=== PATIENT | female | born 1940 | race Caucasian/White ===

== ENCOUNTER → 2017-05-11 | Outpatient (CLI) | payer OTHER | LOC: BHFA 13:15 | PROVIDERS: ATTEND Internal Medicine Cardiovascular Disease | DX: I34.0 Nonrheumatic mitral (valve) insufficiency (principal) | CPT/HCPCS: 78452; 93017; 93306; A9500; J2785 ==

== ENCOUNTER → 2017-05-24 | Outpatient (CLI) | payer OTHER ==
[~2017-05-24] MED LIST: IOPAMIDOL (ISOVUE 370) 100 ML BTL IV ONE
== END ==
LOC: FIMAGING 11:42
PROVIDERS: ATTEND Internal Medicine Cardiovascular Disease
DX: I28.8 Other diseases of pulmonary vessels (principal); J43.2 Centrilobular emphysema; R91.8 Other nonspecific abnormal finding of lung field
CPT/HCPCS: 71275; Q9967

== ENCOUNTER → 2017-06-23 | Outpatient (CLI) | payer OTHER, BC | LOC: FCP 10:12 | PROVIDERS: ATTEND Family Medicine | DX: R09.02 Hypoxemia (principal); J44.9 Chronic obstructive pulmonary disease, unspecified; I27.20 Pulmonary hypertension, unspecified; I28.1 Aneurysm of pulmonary artery; R91.1 Solitary pulmonary nodule ==

== ENCOUNTER 2017-06-30 12:48 | Inpatient (IN) | payer OTHER, BC ==
[2017-06-30] MEDS ORDERED: NS 1,000 ML IV ONE (12:58)
[2017-06-30] MEDS ORDERED: FAMOTIDINE 20 MG TAB PO ONE (12:58)
[2017-06-30] MEDS ORDERED: ASPIRIN EC 325 MG TAB PO ONE (12:58)
[2017-06-30] MEDS ORDERED: diphenhydrAMINE 25 MG CAP PO ONE (12:58)
[2017-06-30] MEDS ORDERED: DIAZEPAM 5 MG TAB PO ONE (12:58)
--- NOTE | 2017-06-30 13:11 | PDHPUP ---
History & Physical Update H&P update statement: This history and physical update is based on an assessment of the patient which was completed after admission or registration (within 24 hours), but prior to the surgery/procedure. H&P update: H&P reviewed & patient examined, no change in patient's condition since H&P completed
--- NOTE | 2017-06-30 13:33 | CPEKG ---
Heart Rate: 79 RR Interval: 759 P-R Interval: 160 QRSD Interval: 122 QT Interval: 404 QTC Interval: 464 P Ruby: 5 QRS Ruby: 192 T Wave Ruby: 92 EKG Severity - ABNORMAL ECG - EKG Impression: SINUS RHYTHM EKG Impression: NONSPECIFIC INTRAVENTRICULAR CONDUCTION DELAY EKG Impression: ABNRM R PROG, CONSIDER ASMI OR LEAD PLACEMENT Electronically Signed By: Manasa Raza 30-Jun-2017 13:35:46
[2017-06-30 13:49] LABS: PLATELET COUNT 225 10^3/uL (150-400)
[2017-06-30 14:10] LABS: INR 0.99 (0.83-1.16); PROTIME(PATIENT) 13.3 SEC (12.0-15.0)
--- NOTE | 2017-06-30 14:45 | PDANEPAE ---
ANE History of Present Illness L and R heart cath pre open heart surgery ANE Past Medical History - Pulmonary History Hx Sleep Apnea: No Pulmonary History Comment: severe puim artery dilation. moderate bullous COPD. O2 dependant ANE Review of Systems Review of Systems: - Exercise capacity METS (RN): 3 METS ANE Patient History - Allergies Allergies/Adverse Reactions: levofloxacin [From Levaquin] Allergy (Intermediate, Verified 06/27/17 19:44) Unknown albuterol Allergy (Mild, Verified 06/27/17 19:44) lisinopril Allergy (Mild, Verified 06/27/17 19:44) Unknown atorvastatin [From Lipitor] Allergy (Verified 06/30/17 14:28) cefuroxime Allergy (Verified 06/27/17 19:48) Unknown hydrochlorothiazide Allergy (Verified 06/30/17 14:28) Penicillins Allergy (Verified 06/27/17 19:48) Unknown rosuvastatin [From Crestor] Allergy (Verified 06/30/17 14:28) - Home Medications Home medications: home medication list seen and reviewed Home Medications: Aspirin EC [Aspirin EC 81 mg (*)] 81 mg PO MOWEFR@06/27/17 [Last Taken Unknown] Levothyroxine [Synthroid 50 mcg (*)] 50 mcg PO DAILY 06/27/17 [Last Taken Unknown] Losartan Potassium [Cozaar 25 mg (*)] 25 mg PO HS 06/27/17 [Last Taken Unknown] Rosuvastatin Calcium [Crestor 5mg] 2.5 mg PO MOWEFR@06/27/17 [Last Taken Unknown] Spironolactone [Aldactone 25 MG (*)] 25 mg PO HS 06/27/17 [Last Taken Unknown] predniSONE 5 mg PO DAILY 06/27/17 [Last Taken Unknown] - NPO status NPO Status: no food or drink >8 hours (except pills with sips) - Anes Hx Anes Hx: no prior problems - Smoking Hx Smoking Status: Never smoked - Alcohol Use Alcohol Use: None ANE Labs/Vital Signs - Labs Result Diagrams: 06/30/17 13:40 06/30/17 13:40 - Vital Signs Height: 160 cm Weight: 70.3 kg ANE Physical Exam - Airway Mallampati Score: Class 2 Mouth exam: normal dental/mouth exam - Pulmonary Pulmonary: expiratory wheeze, inspiratory crackles - Cardiovascular Cardiovascular: regular rate and rhythym - ASA Status ASA Status: III ANE Anesthesia Plan Anesthesia Plan: GA w LMA (vs ETT. Prefer to avoid positive pressure ventilation if possible)
[2017-06-30] MEDS ORDERED: fentaNYL 100 MCG/2 ML INJ ONE (16:24)
[2017-06-30] MEDS ORDERED: LIDOCAINE 1% 300 MG/30 ML SDV ONE (16:24)
[2017-06-30] MEDS ORDERED: HEPARIN 10,000 UNIT/10 ML MDV (1,000 UNIT/ML) ONE (16:25)
[2017-06-30] MEDS ORDERED: IOPAMIDOL (ISOVUE-370) 150 ML BTL IV ONE ×3 (16:25→17:42)
[2017-06-30] MEDS ORDERED: VERAPAMIL 5 MG/2 ML VIAL ONE (16:25)
[2017-06-30] MEDS ORDERED: MIDAZOLAM 2 MG/2 ML VIAL ONE (16:25)
[2017-06-30] MEDS ORDERED: PROPOFOL/EMULSION 500 MG/50 ML BOTTLE IV ONE ×2 (16:26→18:05)
[2017-06-30] MEDS ORDERED: LIDOCAINE 2% JELLY 5 ML TUBE ONE (16:30)
[2017-06-30] MEDS ORDERED: LIDOCAINE 2% 100 MG/5 ML SYR ONE (16:30)
[2017-06-30] MEDS ORDERED: PHENYLEPHRINE HCL 100 MCG/ML SYR ONE (16:38)
[2017-06-30] MEDS ORDERED: PHENYLEPHRINE 10 MG/ML SDV ONE (17:05)
[2017-06-30] MEDS ORDERED: PROPOFOL 200 MG/20 ML VIAL ONE ×2 (17:12→17:39)
[2017-06-30] MEDS ORDERED: NITROGLYCERIN 1,500 MCG/15 ML VIAL MISC ONE (17:26)
[2017-06-30] MEDS ORDERED: PHENYLEPHRINE HCL 100 MCG/ML SYR IVP PRN (18:42)
[2017-06-30] MEDS ORDERED: MEPERIDINE 25 MG/ML SYR IVP PRN (18:42)
[2017-06-30] MEDS ORDERED: ONDANSETRON 4 MG/2 ML VIAL IVP PRN (18:42)
[2017-06-30] MEDS ORDERED: NALOXONE HCL 0.4 MG/ML INJ IVP PRN (18:42)
[2017-06-30] MEDS ORDERED: HYDROCODONE/APAP 5/325 TAB PO PRN (18:42)
[2017-06-30] MEDS ORDERED: DEXAMETHASONE 4 MG/ML VIAL IVP PRN (18:42)
[2017-06-30] MEDS ORDERED: LR 500 ML IV PRN (18:42)
[2017-06-30] MEDS ORDERED: fentaNYL 100 MCG/2 ML INJ IVP PRN (18:42)
[2017-06-30] MEDS ORDERED: ATROPINE SULFATE 1 MG/10 ML SYR IVP PRN (18:43)
[2017-06-30] MEDS ORDERED: NITROGLYCERIN 0.4 MG BTL SL PRN (18:43)
--- NOTE | 2017-06-30 19:06 | POSTOPPROG ---
Post Op Note Date of Operation: 06/30/17 Surgeon: Manasa Raza Anesthesia: IV Sedation, LMA, Other (Specify) (Sedation provided by Dr. Reed Ramirez) Pre-op Diagnosis: giant PA aneurysm Post-op Diagnosis: giant PA aneurysm; critical PHTN Indication: pre CT surgery Procedure: 1. RHC 2. LHC 3. Cor angio Findings: see dictated report. No sig CAD. Likely LM compression from PA aneurysm Inf/Abcess present in the surg proc area at time of surgery?: No EBL: Minimal Total fluids administered: 500 cc Complications: none Drains: Other (none) Specimen(s): none
[2017-06-30] MEDS ORDERED: LOSARTAN POTASSIUM 25 MG TAB PO SCH (21:00)
--- NOTE | 2017-06-30 21:17 | CPIP ---
[f rep st] INVASIVE CARDIAC PROCEDURE DATE OF PROCEDURE: 06/30/2017 PROCEDURE: 1. Right heart catheterization. 2. Left heart catheterization. 3. Coronary angiography. COMPLICATIONS: None. INDICATION FOR PROCEDURE: Preoperative evaluation prior to pulmonary artery aneurysmectomy and possible PVR and tricuspid repair. DESCRIPTION OF PROCEDURE: Informed consent was obtained and n.p.o. status was confirmed. Time-out performed. The patient was brought to the catheterization laboratory and prepped and draped in sterile fashion. Sedation was provided by Dr. Reed Ramirez. Using ultrasound guidance, a 5-Cambodian introducer sheath was placed in the right internal jugular vein. Modified Seldinger technique was used. Five-Cambodian [place]-Cody catheter was used for right heart pressures. After this was completed, a 6-Cambodian sheath was placed in the right common femoral artery using modified Seldinger technique. For left coronary system imaging, multiple diagnostic and guiding catheters were used. I did call Dr. Les Zuh in for assistance, as we were having difficulty completely engaging the left main coronary artery. The right coronary artery was imaged with a Pranav catheter. We used a JR4 catheter for left ventricular pressure. FINDINGS: 1. Right heart catheterization: RA pressure mean is 18. RV pressure 91/14 with an end-diastolic pressure of 27. PA pressure 95/33 with a mean of 58 mmHg. 2. Saturations: SVC sat 80% with the patient on approximately 30% FiO2 with LMA. PA saturation 68%. RV saturation 65%. RA 61%. Arterial saturation 94%. 3. Calculated Crotes cardiac output is 4.4 L/minute with a cardiac index of 2.54 L/minute per sq meter. 4. Left heart catheterization: Left main: The appearance was that of a highly compressed slit-like vessel. Initially, we were concerned about dissection versus spasm of this vessel. 100 mcg of intracoronary nitroglycerin was given. The patient did not have a significant change in her hemodynamics. There was no change in her ST segments. At this point, I called my partner, Dr. Les Zhu, for assistance. We tried multiple diagnostic as well as guiding catheters and were able to get a few pictures of the left system. In EVANS views , the left main appears normal; however, each time we imaged the left main from an YAKUT position, the vessel appeared slit-like and possibly externally compressed. There is no significant atherosclerotic disease in the left circumflex with 2 large obtuse marginals or in the LAD with 2 diagonal vessels. 5. The right coronary artery is normal and dominant without significant atherosclerotic coronary disease. 6. Left heart catheterization pressures: Aortic pressure 69/50 with a mean of 57, LV pressure 68/11, with end-diastolic pressure of 15. CONCLUSIONS: 1. Critical and intermittently greater than systemic pulmonary arterial hypertension. 2. No clear atherosclerotic coronary disease. The left main is abnormal and likely this is related to external compression from the patient's giant pulmonary artery aneurysm. 3. Diminished cardiac output. Left ventricular ejection fraction known to be normal, so this is likely related to her right heart pathology and pulmonary hypertension. 4. The patient will be admitted to telemetry. She will have a manual sheath pull. We will follow her renal function carefully. If renal function is stable , we will perform CT coronary angiogram tomorrow to further assess the relationship between her left main coronary artery and pulmonary artery aneurysm for surgical planning purposes. I discussed these results in detail with the patient and the patient's son and explained that she remains a very high surgical risk, given her profound pulmonary hypertension. They verbalize understanding. /[id number]/MODL MTDD
[2017-06-30] MEDS: predniSONE 5 MG TAB PO SCH ×2 (21:41→21:42)
[2017-06-30] MEDS: SPIRONOLACTONE 25 MG TAB PO SCH (23:26)
--- NOTE | 2017-06-30 23:57 | GCON ---
[f rep st] CONSULTATION DATE OF CONSULTATION: 06/30/2017 HISTORY OF PRESENT ILLNESS: The patient is a pleasant 77-year-old female with a history of severe pu lmonary hypertension who underwent right and left heart catheterization for preoperative workup for t horacic surgery as she has an 8.5 - 9 cm main pulmonary artery. She underwent a prolonged catheteriz ation with multiple catheter exchanges and some hypotension requiring doses of phenylephrine. She al so received propofol with an LMA. Dr. Raza, the online services manager, performed the catheterization, called a stroke alert because the patient had delayed speech. At that time, she was felt to have symmetric strength. When I speak with the patient, she is able to name objects and carry on normal conversation. She is complaining of some numbness around her mouth bilaterally. She denies fever, chills, cough, sputum, nausea, vomiting, diarrhea, and she is not confused. REVIEW OF SYSTEMS: Complete 10-point review of systems conducted is negative except as noted in the History of Present Illness. PAST MEDICAL HISTORY: 1. Severe pulmonary hypertension with dilated main pulmonary artery. 2. Right ventricular dilation with 2 with preserved right ventricular function. 3. Emphysematous lung disease with no history of smoking. 4. Diastolic heart failure. 5. Dyslipidemia. 6. HSV-1 infection. 7. Hypersensitivity pneumonitis. 8. Hypothyroidism. 9. Hypoxemia. 10. Left bundle branch block. 11. Macular degeneration. 12. Mitral regurgitation. 13. Pneumothorax. 14. Pulmonary nodule. PAST SURGICAL HISTORY: She has history of bronchoscopy and cataracts. MEDICATION: Outpatient medications are: Advair, aspirin, Crestor, levothyroxine, losartan, predniso ne 5, Spiriva and spironolactone. ALLERGIES: She is allergic to albuterol, cefuroxime, Crestor, Levaquin, Lipitor, lisinopril, hydroch lorothiazide, penicillin, . SOCIAL HISTORY: She does not smoke cigarettes or use alcohol. She lives in [facility]. PHYSICAL EXAMINATION: VITAL SIGNS: Heart rate was in the 70s. Blood pressure is 91/53. She is adolfo athing 18 times a minute. She was 91% on 4 L. GENERAL: No acute distress. HEENT: Sclerae anicter ic. Oropharynx clear. Mucous membranes are moist. NECK: Supple with lymphadenopathy or JVD. LUNG S: Clear to auscultation bilaterally. HEART: S1 with a split S2. ABDOMEN: Soft, nontender, nondi stended. EXTREMITIES: Lower extremities without edema. Calves nontender. NEUROLOGIC: Exam reveal s a subtle left-sided facial droop that was verified with the patient. She has batsheva normal numbness that is bilateral. Her speech is fluent. Able to name objects. She has an intact sensation on her face bilaterally, on her arms and legs bilaterally, and upper extremity and lower extremity strength is 5/5 bilaterally. I have discussed the case with Dr. Manasa Raza. LABORATORY: Sodium 141, potassium 4.6, chloride 100, bicarb 28, BUN 26, creatinine 1.2 with unknown baseline. LDL is elevated at 131. INR is normal. White count 10.7, hematocrit 43, platelets are 22 5,000. EKG interpreted by me shows sinus at 79 with right axis deviation and delayed R-wave progression. No ST or T-wave changes. This is consistent with right ventricular hypertrophy. ASSESSMENT/PLAN: A 77-year-old female with post catheterization speech and facial droop. 1. Question cerebrovascular accident. Certainly, the patient had a prolonged catheterization with h ypotension and multiple catheter exchanges. This is a high risk scenario for embolic cerebrovascular accident versus a watershed cerebrovascular accident with her hypotension. Her NIH stroke scale is relatively low as her speech is fluent by my exam. Dr. Raza, who knows her well as an outpatient, sa ys it is a bit slower but that could be just encephalopathy. Her facial droop is there and undeniabl e but in and of itself represents a relatively low NIH stroke scale. The patient does have some rela tive contraindications with thrombolytics being her multiple catheter exchanges and recent angiogram today. The patient is undergoing a noncontrast CAT scan at this moment with consultation with [facility]. I would be hesitant to provide lytics with this patient given her aforementioned proce dure and low NIH stroke scale. Await the findings of the CAT scan. I think MRI brain in the morning is indicated for further clarification. 2. Pulmonary hypertension. She is undergoing workup for possible surgical management of her pulmona ry artery aneurysm. 3. Pulmonary hypertension. Management per Dr. Raza. 4. Hypotension. This appears to have resolved. Thank you for this consultation. [facility] will follow. /[id number]/MODL
[2017-07-01] MEDS ORDERED: LORazepam 2 MG/ML INJ IVP ONE (07:15)
--- NOTE | 2017-07-01 08:33 | POSTANESTH ---
Post Anesthetic Evaluation Cardiovascular Status: Normal, Stable Respiratory Status: Normal, Stable, Similar to Pre-op Cond. (needs constant o2) Level of Consciousness/Mental Status: Can Participate in Eval Pain Control: Adequate, Prn Tx Ordered Nausea/Vomiting Control: Adequate, Prn Tx Ordered Complications Possibly Related to Anesthesia: None Noted
--- NOTE | 2017-07-01 09:32 | PDCARPN ---
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 She was admitted after her diagnostic right and left heart catheterization on June 30. Her course was complicated by TIA manifest by left facial droop and mild dysarthria. A stroke alert was called from the [facility] and she had negative head CT. She did have a neurological evaluation acutely, through the telemedicine portal. No lytics were required. Within an hour she had resolution of her facial droop and return to normal fluent speech. No other neurological deficits. 1. Giant pulmonary artery aneurysm: This is at high risk of rupture. Etiology is not yet clear. Evaluation for vasculitis such as Bechet's disease is underway. She does have severe pulmonary hypertension which does contribute to aneurysmal formation in the pulmonary artery. It also appears that the main pulmonary artery is compressing her left main coronary artery, which is certainly an unfavorable anatomic issue. We will discuss again with Dr. Les Waite after she has her CT coronary angiogram. He has tentatively planned to operate, replacing the pulmonic valve, repairing her tricuspid valve, and replacing her main pulmonary artery. For now she will stay in the hospital until a final decision about surgery has been made, given her high risk of rupture and her anatomical left main disease. 2. Critical pulmonary hypertension: Mean PA pressure 58. RV pressure is also in the 90s, indicating that her RV function is fairly robust. Etiology is likely related to the emphysematous disease in her lungs, being evaluated by Dr. Pillo Kumar. While here in the hospital she will have additional laboratory evaluation including vasculitis workup and alpha 1 antitrypsin. She will also have a V/Q scan. As per Dr. Kumar, if she does undergo cardiac surgery, it would be helpful to have inhaled nitric oxide available for right ventricular afterload reduction in the perioperative period. 3. Hypoxia and emphysematous lung disease: Atypical presentation as she is a never smoker. Ongoing workup as detailed above. Continue supplemental oxygen therapy. She does take chronic low-dose prednisone which will be continued. 4. Left main disease: This appears to be extrinsic compression from the pulmonary artery. CT coronary angiogram today to further evaluate anatomical relationships. She may require single-vessel bypass at the time of her PA aneurysm repair. 5. TIA yesterday evening status post catheterization: She is neurologically back to baseline. Head CT without acute findings. No need for brain MRI at this time. Continue aspirin and statin. 6. Valvular heart disease: Severe pulmonic regurgitation related to aneurysmal dilation of the main pulmonary artery. She also has moderate tricuspid regurgitation. Mild aortic and mitral regurgitation. Likely will require pulmonic valve replacement and tricuspid valve annuloplasty. 45 minutes was spent in direct patient care, discussion with Dr. Kumar and nursing, review of chart. 07/01/17 09:32 Subjective: She reports her dyspnea is at baseline. No angina. Her perioral numbness that was present shortly after her angiogram last night has resolved. She denies any other focal neurologic deficits. Reviewed/Discussed With: other (Dr. Pillo Kumar) Time Spent With Patient: 25 minutes Objective: Vital Signs (8 Hrs) Temp Pulse Resp BP Pulse Ox 07/01/17 08:00 76 21 H 97/67 L 96 07/01/17 05:31 83 23 H 97/58 L 95 07/01/17 02:31 36.6 C 90 21 H 100/72 91 L Intake/Output (24 Hrs) 06/30/17 07/01/17 07/02/17 05:59 05:59 05:59 Intake Total 2300 Output Total 1100 Balance 1200 Intake: Oral (ml) 1600 IV Intake (ml) 700 Output: Urine (ml) 1100 Bedpan 250 Bedside Commode 850 Other: Weight 70.3 kg Number of Voids Bedpan 1 No acute distress. Sitting up in bed. JVP less than 10. Regular rate and rhythm with soft early systolic murmur at the left lower sternal border. Lungs clear to auscultation without wheezes rhonchi or rales Right femoral arteriotomy site is clean dry and intact with out hematoma, or bruit Extremities are warm and well perfused without cyanosis clubbing or edema neuro alert and oriented x3 without gross focal neurologic deficits. Her facial droop has resolved. Appropriate mood and affect. Result Diagrams: 07/01/17 05:25 07/01/17 05:25 Telemetry: NSR with occ PVCs ICD10 Worksheet Patient Problems: Problems Problem Status Onset COPD (chronic obstructive pulmonary disease) Acute Hypoxia Acute Left main coronary artery disease Acute Pulmonary HTN Acute Pulmonary artery aneurysm Acute - ICD10 Problem Qualifiers (1) Pulmonary artery aneurysm (2) Pulmonary HTN (3) COPD (chronic obstructive pulmonary disease) (4) Hypoxia (5) Left main coronary artery disease
[2017-07-01] MEDS ORDERED: METOPROLOL TARTRATE 25 MG TAB PO ONE (10:45)
[2017-07-01] MEDS: predniSONE 5 MG TAB PO SCH (10:54)
[2017-07-01] MEDS: LEVOTHYROXINE 50 MCG TAB PO SCH (10:54)
[2017-07-01] MEDS: ENOXAPARIN 40 MG/0.4 ML SYR SC SCH (10:56)
[2017-07-01] MEDS ORDERED: IOPAMIDOL (ISOVUE 370) 100 ML BTL IV ONE (12:04)
[2017-07-01] MEDS ORDERED: METOPROLOL TARTRATE 5 MG/5 ML INJ ONE ×2 (12:10→12:38)
[2017-07-01] MEDS ORDERED: IPRATROPIUM/ALBUTEROL 3 ML DEYVIAL IH PRN (13:06)
--- NOTE | 2017-07-01 14:25 | GCON ---
[f rep st] CONSULTATION NEUROLOGY CONSULTATION REFERRING PHYSICIAN: Manasa Raza MD CHIEF COMPLAINT: Followup after stroke alert. HISTORY OF PRESENT ILLNESS: The patient is a very pleasant 77-year-old lady with a history of severe pulmonary artery hypertension who underwent right and left heart catheterization for preoperative workup for thoracic surgery yesterday. The patient states after coming as the anesthesia was wearing off, she noticed bilateral perioral numbness. She then states when she was tested there may have been some facial droop on the left, but she did not feel any weakness in her face. She did not have any weakness in her limbs. Dr. Hare saw her acutely and noted her blood pressure to be 91/53. He also noted that she was able to name objects and carry on a normal conversation with him at the time of examination, but only complained of numbness around her mouth bilaterally. These symptoms lasted around 15 to 20 minutes and spontaneously resolved. Telemedicine was consulted, and they did not recommend tPA. She had a head CT done acutely with a stroke alert. It showed no acute abnormalities. There were some age-related changes. In addition, as she still had circulating contrast, there was some visualization of the cerebral vasculature. Specifically, there were no obvious abnormalities in the major proximal vessels , including the bilateral M1, A1, posterior cerebral, and intracranial, vertebral, and basilar arteries. There was some artifact as well. The patient has done well overnight without any recurrent symptoms. In the patient's opinion, this was a side effect from anesthesia. For past medical history, social history, home medications, and allergies, please see Dr. Hare's consultation note. PHYSICAL EXAMINATION: VITAL SIGNS: Blood pressure is 100/72, temperature 36.6 , respirations 17. GENERAL: No acute distress. Very pleasant. NEUROLOGIC: Higher mental function. She is awake and alert. She names 5/5, follows commands 5/5 and repeats 5/5. No aphasia. Cranial nerve exam is normal 2 through 7 and 12. No facial weakness presently. No dysarthria. No sensory deficits in her face. Motor exam is normal strength and tone throughout. Sensory exam normal to light touch. IMPRESSION AND PLAN: 1. Transient neurologic symptoms, resolved. The patient's clinical history is not entirely clear. She certainly may have had a TIA versus nonspecific transient neurologic symptoms related to anesthetic medications. The perioral numbness would be more consistent with a medication side effect versus a focal neurovascular syndrome. In any case, I agree with management, including statin and aspirin therapy going forward. I also recommend a carotid ultrasound preoperatively. The patient's neurologic exam is normal. MRI brain is not necessary at this point. I understand the severity of her cardiopulmonary disorder and there is no specific contraindication, based on this event, to proceed with surgery as planned. No further recommendations now. We will continue to follow this patient as needed. Please do not hesitate to call with any questions or changes in neurologic status with this very pleasant lady. Fifty total minutes floor time; this included review of her complex past medical history, recent neuro imaging, direct counseling with the patient and coordination of care. /[id number]/MODL MTDD
[2017-07-01] MEDS ORDERED: LORazepam 2 MG/ML INJ ONE (14:50)
--- NOTE | 2017-07-01 15:16 | HOSPPROG ---
Hospitalist Progress Note Assessment/Plan: Assessment/plan: This is a 77 year old female new to my care today underwent cardiac catheterization on 06/30/[address] Raza and had: # postprocedure facial numbness thought to be most likely due to anesthesia versus TIA # critical pulmonary hypertension with giant pulmonary artery aneurysm at high risk for rupture as well as critical pulmonary hypertension -await CT angio -continue care per Cardiology and CT surgery. Awaits pulmonic valve replacements and tricuspid valve and pulmonary artery repair # hypotension (resolved) # mild hyperkalemia -monitor Subjective: Patient feels well today. She denies any numbness or weakness. Her speech is normal. She reports resolution of numbness of her lips. Objective: Vital Signs Temp Pulse Resp BP Pulse Ox 36.9 C 75 20 98/64 L 95 07/01/17 11:47 07/01/17 11:47 07/01/17 11:47 07/01/17 11:47 07/01/17 11:47 Laboratory Results 07/01/17 05:25 07/01/17 05:25 06/30/17 07/01/17 07/02/17 05:59 05:59 05:59 Intake Total 2300 Output Total 1100 Balance 1200 PT 13.3 SEC (12.0-15.0) 06/30/17 13:40 INR 0.99 (0.83-1.16) 06/30/17 13:40 - Physical Exam Constitutional: no apparent distress, appears nourished, not in pain Ears, Nose, Mouth, Throat: moist mucous membranes, hearing normal, ears appear normal, no oral mucosal ulcers Cardiovascular: regular rate and rhythym, no murmur, rub, or gallop Respiratory: no respiratory distress, no rales or rhonchi, clear to auscultation Gastrointestinal: normoactive bowel sounds, soft, non-tender abdomen, no palpable masses Neurologic: AAOx3, sensation intact bilaterally, CN II-XII Intact, No facial droop ICD10 Worksheet Patient Problems: Problems Problem Status Onset Pulmonary artery aneurysm Acute Pulmonary HTN Acute COPD (chronic obstructive pulmonary disease) Acute Hypoxia Acute Left main coronary artery disease Acute
--- NOTE | 2017-07-01 15:29 | ASMTCASEMG ---
Living Arrangements What is your living Answers: Alone arrangement? Who do you live with? Type Of Residence What kind of residence do Answers: House you live in? Discharge Plan Comments Coordination Status Comments Notes: Patient is a 77yo single female who was admitted for hypoxia and pulmonary HTN. No therapies have been ordered yet. D/C plan TBD. CM will follow. Date Signed: 07/01/2017 03:28 PM Electronically Signed By:Chen Ca LCSW
--- NOTE | 2017-07-01 16:26 | GCON ---
[f rep st] CONSULTATION PULMONARY CONSULT DATE OF CONSULTATION: 07/01/2017 HISTORY OF PRESENT ILLNESS: This patient is a 77-year-old female, well known to me from a recent jose carlos luation as an outpatient for pulmonary hypertension. She has a complex history involving COPD, thoug h she has no smoking history, and hypoxemia. She has had significant pulmonary hypertension on echoc ardiogram since at least March 2015, when her PA pressure was measured at 74. She has also had mod erate right atrial and right ventricular enlargement as well as severe dilatation of the pulmonary ar randall. She recently changed hospital systems and started in [facility], and the pulmonary artery was discovered. She was admitted now for right and left heart catheter ization, which was performed yesterday. On the right heart catheterization, she was found to have a mean pulmonary artery pressure of 58 with a Cortes cardiac output of 4.4, index of 2.5, and an LVEDP of 15, resulting in a calculated PVR of 17. She was also found to have what appeared to be a compresse d mid left anterior descending artery without obvious intraluminal stenosis. In any case, she tolera ailsa that procedure quite well and is relatively stable at this time. Further workup for her pulmonar y hypertension and possible surgical intervention is currently underway. REVIEW OF SYSTEMS: Significant for hypoxemia and dyspnea, walking as little as 5 feet. She has had no chest pain or previous thromboembolic disease. She has been on chronic prednisone for several yea rs, but the details of that are uncertain. PAST MEDICAL HISTORY: Includes: 1. Actinic keratoses. 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 3. Remote cellulitis. 4. COPD, as described above. 5. Diabetes. 6. Diastolic heart failure. 7. Dyslipidemia. 8. HSV infection. 9. Hypertension. 10. Hypothyroidism. 11. Hypoxemia. 12. Left bundle branch block. 13. Macular degeneration. 14. Mild mitral regurgitation. 15. Remote pneumothorax with a bronchoscopy in the . 16. Pulmonary hypertension as described above. 17. A right lower lobe granuloma noted in October 2013, but a new left upper lobe ground-glass nodule se en May 2017. 18. Seasonal allergies. 19. Vitamin D deficiency. PAST SURGICAL HISTORY: None other than bronchoscopy. ALLERGIES: Include: 1. Albuterol, which causes cough. 2. Cefuroxime. 3. Crestor. 4. Levaquin. 5. Lipitor. 6. Lisinopril/hydrochlorothiazide. 7. Penicillin. FAMILY HISTORY: Significant for coronary artery disease. SOCIAL HISTORY: She is a lifelong nonsmoker, but did live with a wood stove in [place] for many years. Currently, lives in [place]. No significant alcohol or IV drug use. CURRENT MEDICATIONS: Include aspirin, Lovenox, Synthroid, prednisone 5 mg daily, Crestor and Aldacto ne. PHYSICAL EXAM: VITAL SIGNS: Blood pressure was 98/64 with a heart rate of 75, in normal sinus rhyth m. Respirations of 20, oxygen saturation 95% on 4 L. GENERAL: She was moderately obese, in no appa rent distress. Sitting up at the bedside, speaking full sentences without using accessory muscles fo r breathing. She was alert and oriented x3, and asks a lot of appropriate questions. HEENT: Pupils equally round and reactive to light. Nonicteric and noninjected. Mucous membranes were moist witho ut erythema or exudate. NECK: Supple with probable jugular vein distention. RESPIRATORY: Breath s ounds distant but clear to auscultation bilaterally without wheezes, rubs or rales. HEART: Regular rate and rhythm. ABDOMEN: Soft, nontender, nondistended without hepatosplenomegaly. Groin areas wi thout hematoma. EXTREMITIES: No clubbing, cyanosis, or edema. NEUROLOGIC: Nonfocal, including aircraft lay out worker nial nerves, deep tendon reflexes. SKIN: Warm and dry without evidence of rash. OBJECTIVE DATA: Includes a right heart catheterization, as described above. She also had a blood ga s on June 23 with 2 L/minute of oxygen with a pH of 7.41, pCO2 45, PO2 68, bicarb 30, saturation o f 93%. She had recent pulmonary function test that showed obstructive disease with an FEV1 of 58% of predicted, and a low diffusion capacity. ASSESSMENT AND PLAN: 1. A very large pulmonary artery aneurysm. She has been seen by Dr. Waite as an outpatient and is l ikely to have this surgically corrected along with her severe pulmonic insufficiency. A tricuspid an nuloplasty is also fairly likely. Her risk for surgery is not trivial, particularly given her severe ly elevated mean pulmonary artery pressure. The etiology here is presumably from her pulmonary hyper tension which is likely to be related to her underlying chronic obstructive pulmonary disease as well as hypoxemia. There may be other disorders involved here as well such as Behcet, though she has jennifer y little to support this diagnosis at this time. While the degree of pulmonary hypertension appears to be out of proportion to chronic obstructive pulmonary disease and hypoxemia alone, I think that re pair of the aneurysm is indicated despite those risks. We will discuss this further with Dr. Waite, once he is available. 2. Pulmonary hypertension. As described above, I think this is most likely group 3 disease from chr onic obstructive pulmonary disease and hypoxemia. I suspect there is an element of sleep apnea as we ll; though she said she had a sleep study in the past, I have not been able to locate this. At some point, she will need a sleep study in a sleep lab, so we can adequately rule out central sleep apnea. In the short term, we will look for chronic thromboembolic disease with a ventilation perfusion sca n as well as connective tissue disease with serum rheumatoid factor, BRODY and ANCA studies. 3. New left upper lobe lesion, seen on CT scan in May. She is going to be getting another CT c oronary angiogram in the near future. We can re-evaluate this at this time. This study is to better evaluate her left anterior descending artery for surgical planning purposes. 4. Chronic obstructive pulmonary disease. I assume this is related to her wood smoke exposure in past. An alpha-1 antitrypsin has been sent. She was quite concerned about using metered dose inha lers, which cause cough, but we will use nebulizers, which she has tolerated well in the past. Since she has been on prednisone for a long time, I am hesitant to discontinue this abruptly, but I would certainly favor a prolonged taper. The benefit of an inhaled corticosteroid at this time may be deba table, but, we will eventually have to work in that direction. /[id number]/MODL
[2017-07-01] MEDS ORDERED: LORazepam 2 MG/ML INJ IV ONE (18:15)
[2017-07-01] MEDS ORDERED: ASPIRIN EC 81 MG TAB PO SCH (21:00)
[2017-07-01] MEDS: ROSUVASTATIN CALCIUM 10 MG TAB PO SCH (21:04)
[2017-07-01] MEDS: SPIRONOLACTONE 25 MG TAB PO SCH (21:07)
[2017-07-02] MEDS: predniSONE 5 MG TAB PO SCH (08:44)
[2017-07-02] MEDS: LEVOTHYROXINE 50 MCG TAB PO SCH (08:44)
--- NOTE | 2017-07-02 09:14 | HOSPPROG ---
Hospitalist Progress Note Assessment/Plan: 77-year-old female seen because of acute stroke alert and thought possibly have a TIA verses medication side effect. Patient found to have severe pulmonary hypertension with a dilated pulmonary artery. There is also known COPD, chronic respiratory failure and acute on chronic kidney injury with potassium today at 5.3. Patient is new to me today Plan: Thoracic surgical consultation, intensive care medicine consultation. Patient is tentatively scheduled for surgical repair of her pulmonary artery aneurysm in the neck is 3-4 days. This has been discussed with the patient and discussed with Dr. Pillo Kumar and nursing. CT scans have been reviewed by myself. -TIA versus medication side effect: This symptom has resolved. It was a medication side effect as she has no neurologic deficit at this time. -pulmonary aneurysm with pulmonary hypertension. Plan to schedule surgical repair in the next 3-4 days of possible -COPD class 3 with hypoxemia requiring supplemental oxygen. This is currently at her baseline and doing well. -question connective tissue disorder with a negative rheumatoid factor. -acute versus chronic kidney injury with a creatinine of 1.1 will continue to follow. Plan: Per above. Will continue to follow along with you. Time: 55 min. Case was discussed with intensive care medicine and with nursing following a phone conversation with cardiothoracic surgery. All questions were answered of the patient and all questions were answered of her son Jabier who was present by phone. Subjective: Reports she is feeling well. Patient had many questions about the surgery. Objective: Vital Signs Temp Pulse Resp BP Pulse Ox 36.7 C 76 16 111/69 97 07/02/17 08:13 07/02/17 08:13 07/02/17 08:13 07/02/17 08:13 07/02/17 08:13 Laboratory Results 07/01/17 05:25 07/01/17 05:25 07/01/17 07/02/17 07/03/17 05:59 05:59 05:59 Intake Total 2300 1500 Output Total 1100 Balance 1200 1500 PT 13.3 SEC (12.0-15.0) 06/30/17 13:40 INR 0.99 (0.83-1.16) 06/30/17 13:40 - Time Spent With Patient Time Spent with Patient: greater than 35 minutes Time Spent with Patient: Greater than 35 minutes spent on this patients care, greater than 50% of time spent counseling, educating, and coordinating care regarding the above mentioned plan. - Pending Discharge Pending Discharge Within 24 Hours: No Pending Discharge Within 48 Hours: No - Physical Exam Constitutional: no apparent distress Eyes: PERRL, anicteric sclera Ears, Nose, Mouth, Throat: moist mucous membranes, hearing normal Cardiovascular: regular rate and rhythym, no murmur, rub, or gallop Respiratory: no respiratory distress, no rales or rhonchi, reduced air movement , other (Kyphotic deformity of the chest.) Gastrointestinal: normoactive bowel sounds, soft, non-tender abdomen, no palpable masses Genitourinary: no bladder fullness Skin: warm Musculoskeletal: full muscle strength Neurologic: AAOx3, CN II-XII Intact Psychiatric: interacting appropriately ICD10 Worksheet Patient Problems: Problems Problem Status Onset COPD (chronic obstructive pulmonary disease) Acute Hypoxia Acute Left main coronary artery disease Acute Pulmonary HTN Acute Pulmonary artery aneurysm Acute
[2017-07-02] MEDS: ENOXAPARIN 40 MG/0.4 ML SYR SC SCH (10:00)
--- NOTE | 2017-07-02 10:49 | GCON ---
[f rep st] CONSULTATION DATE OF CONSULTATION: 07/02/2017 REASON FOR CONSULTATION: The patient is seen at the request of Dr. Raza with the patient's sj jacques. IMPRESSION: 1. Large pulmonary artery aneurysm with severe pulmonic insufficiency. 2. Severe pulmonary hypertension. 3. Central lobar emphysema, severe. 4. Moderate tricuspid insufficiency. 5. Extreme compression of the left main coronary artery by #1. 6. Diabetes. 7. Diastolic heart failure. 8. Hypothyroidism. 9. Left bundle branch. 10. Macular degeneration. 11. Mild mitral aortic and aortic insufficiency. 12. Remote pneumothorax following a bronchoscopy in the , side indeterminate. 13. Left upper lobe abnormality on CT scan. Cannot exclude early adenocarcinoma or bronchoalveolar carcinoma. RECOMMENDATIONS: This patient has been seen as an outpatient by myself, and has had an extensive pul monary and cardiac evaluation in anticipation of potential surgery for her pulmonary artery aneurysm. She has noted a marked decrease in her functional capacity over the last 2 years, marked by worseni ng shortness of breath. She was noted to have an enormous pulmonary artery aneurysm, felt to be due to connective tissue disease. Intracardiac shunt was ruled out at right heart catheterization, at ich time she was noted to have systemic PA pressures, please see separate report. LVEDP was 17. She was noted to have marked compression of the left main coronary artery, which was confirmed with card iac CT yesterday. Cardiac index was 2.5. Mean PA pressure was 58. Additional medical evaluation is being conducted to help identify her central lobar emphysema in this very pleasant lady who has neve r smoked. The patient is adamant about proceeding with surgical intervention despite her increased r isks predominantly due to her pulmonary hypertension. From a cardiac standpoint, I do believe that r esecting her pulmonary outflow tract and pulmonic valve with conduit replacement will help alleviate some of her symptoms, but again her greatest risk colbert with her pulmonary hypertension. We will have nitrous oxide available at the time of surgery. I advised her that the risk is difficult to assess, but may approach 10%. We also spent some time talking about potential need for long-term ventilatio n, including tracheostomy and potential long-term acute care placement. She is a very well informed, very motivated patient who states she has support of her 2 sons, who will meet with me on Tuesday. T entative surgery is scheduled for Tuesday pending availability of nitrous oxide. I will again review the risks and complications per consent, including transfusions, etc. At the time of her consenting , I spent approximately 1 hour with this patient. REVIEW OF SYSTEMS: Unremarkable. PAST MEDICAL HISTORY: As stated. MEDICATION: On admission: Aspirin, Lovenox, Synthroid, prednisone 5 mg a day, Crestor, and Aldacton e. PHYSICAL EXAMINATION: GENERAL: This is a slightly overweight elderly female, very alert, very well informed, quite motivated. Except for pulmonary limitations, is fully active. VITAL SIGNS: 98/60, pulse 70, respirations 20. She is on 4 L nasal cannula. Sats are greater than 90%. She is moderately obese. She is in no distress, and is actually able to carry on a conversatio n without interrupting sentences for breathing. HEART: Rate is regular. LUNGS: Diminished. ABDOM EN: Protuberant, soft, nontender. Bowel sounds are active. RECTAL AND GENITAL: Exams were deferre d. NEUROLOGIC: She is grossly intact. She has no clubbing or cyanosis, nor any edema. She does osorio ve a history of taking fluid when off her spironolactone. LABORATORY DATA: Blood gas on room air revealed 7.41, pCO2 of 45, PO2 68, and bicarb 30, and sat 93% . FEV1 was 58% of predicted, and she had a relatively low diffusion capacity, less than 50. /[id number]/MODL
--- NOTE | 2017-07-02 12:55 | PDCARPN ---
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 She was admitted after her diagnostic right and left heart catheterization on June 30. Her course was complicated by TIA manifest by left facial droop and mild dysarthria. A stroke alert was called from the [facility] and she had negative head CT. She did have a neurological evaluation acutely, through the telemedicine portal. No lytics were required. Within an hour she had resolution of her facial droop and return to normal fluent speech. No other neurological deficits. 1. Giant pulmonary artery aneurysm: This is at high risk of rupture. Etiology is not yet clear. Evaluation for vasculitis such as Bechet's disease is underway. Alpha 1 antitrypsin laboratories are pending. She does have severe pulmonary hypertension which does contribute to aneurysmal formation in the pulmonary artery. It also appears that the main pulmonary artery is compressing her left main coronary artery, which is certainly an unfavorable anatomic issue. She has met again with Dr. Les Waite. Surgical risks reviewed in detail, and the patient understands that she is at higher than usual risk due to her underlying pulmonary hypertension and emphysematous lung disease. Surgery planned for TuesdayJuly 05. 2. Critical pulmonary hypertension: Mean PA pressure 58. RV pressure is also in the 90s, indicating that her RV function is fairly robust. Etiology is likely related to the emphysematous disease in her lungs, being evaluated by Dr. Pillo Kumar. While here in the hospital she will have additional laboratory evaluation including vasculitis workup and alpha 1 antitrypsin. V/Q scan negative for PE. As per Dr. Kumar, if she does undergo cardiac surgery, it would be helpful to have inhaled nitric oxide available for right ventricular afterload reduction in the perioperative period. 3. Hypoxia and emphysematous lung disease: Atypical presentation as she is a never smoker. Ongoing workup as detailed above. Continue supplemental oxygen therapy. She does take chronic low-dose prednisone which will be continued. 4. Left main disease: This is due to extrinsic compression from the pulmonary artery. She will require single-vessel bypass at the time of her PA aneurysm repair. 5. TIA yesterday evening status post catheterization: She is neurologically back to baseline. Head CT without acute findings. No need for brain MRI at this time. Continue aspirin and statin. 6. Valvular heart disease: Severe pulmonic regurgitation related to aneurysmal dilation of the main pulmonary artery. She also has moderate tricuspid regurgitation. Mild aortic and mitral regurgitation. 07/02/17 12:52 Subjective: Yokasta feels fairly well. No recurrent neurological deficits. Breathing is baseline. Reviewed/Discussed With: other (Dr. Les Waite. Dr. Pillo Kumar) Objective: Vital Signs (8 Hrs) Temp Pulse Resp BP Pulse Ox 07/02/17 08:13 36.7 C 76 16 111/69 97 07/02/17 05:30 72 20 90/59 L 98 Intake/Output (24 Hrs) 07/01/17 07/02/17 07/03/17 05:59 05:59 05:59 Intake Total 2300 1500 Output Total 1100 Balance 1200 1500 Intake: Oral (ml) 1600 1500 IV Intake (ml) 700 Output: Urine (ml) 1100 Bedpan 250 Bedside Commode 850 Other: Weight 70.3 kg Number of Voids Bedpan 1 Bedside Commode 3 Toilet 1 Number of Stools Bedpan 1 No acute distress. JVP 10. Regular rhythm with occasional ectopy. 2/4 holodiastolic murmur at the left sternal border Lungs clear auscultation bilaterally wheeze rhonchi or rales No lower extremity edema Result Diagrams: 07/01/17 05:25 07/01/17 05:25 Telemetry: Sinus rhythm with short salvos of what appears to be paroxysmal atrial tachycardia ICD10 Worksheet Patient Problems: Problems Problem Status Onset Pulmonary artery aneurysm Acute Pulmonary HTN Acute COPD (chronic obstructive pulmonary disease) Acute Hypoxia Acute Left main coronary artery disease Acute - ICD10 Problem Qualifiers (1) Pulmonary artery aneurysm (2) Pulmonary HTN (3) COPD (chronic obstructive pulmonary disease) (4) Hypoxia (5) Left main coronary artery disease
[2017-07-02] MEDS ORDERED: ASPIRIN 81 MG CHEWABLE TAB ONE (12:59)
[2017-07-02] MEDS: ASPIRIN 81 MG CHEWABLE TAB PO SCH (13:05)
--- NOTE | 2017-07-02 16:44 | PDINTPN ---
Back End Developer Progress Note Assessment/Plan: Assessment/plan 77 F well-known to me from outpatient workup of pulmonary hypertension. 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 She underwent RHC 07/01 revealing a mean PA pressure of 58 with an RAP 18, Corets CO 4.4, and LVEDP of 15. Multidisciplinary consultation agreed with planned aneurysm resection/repai, PV repair, and likely CABG of LED, which was flattened by the large PA. I suspect her PH is long standing, based on her RV function and functional class (III), and will likely persist postoperatively. Her risk of PA rupture in the absence of surgery is high. * PA aneurysm- discussed in details with Luz Marina Flanagan, and Napoleon. I agree with plans to proceed with surgery which will require coordinated efforts intra - and postoperatively. Her biggest challenges will be hemodynamically, with efforts to be focused towards optimal RV function, including adequate MAP, avoiding agents that can increase PVR such as atracurium, maintaining oxygen, avoiding elevated CO2 and acidosis as well as profound hypothermia. She will need an arterial line and PA catheter perioperatively as well. Inhaled NO is necessary to maintain hemodynamics and will obviate concerns about systemic hypotension and VQ matching. NO only requires daily ABGs to monitor for methemaglobinemia, and monitoring for excess NO2 production which can lead to free radical formation and potential lung injury. We will also have to watch for pulmonary edema, since increased LV preload could result, and if used will require slow weaning to avoid rebound PH and hypoxemia. * PHTN- I suspect she has primarily group III PH related to COPD/hypoxemia. Connective tissue disease such as Behcets is associated with PA aneurysms of this magnitude, but she has little to support it. RON is a remote possibility and she will eventually require an outpatient sleep study (she is adamant that she does not have this). It is hard to be certain there is not concomitant PAH ( group I), and she may eventually need PAH specific therapy depending on her course. Other serologies are also pending at this time. 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 She was thought at one time to have hypersentitivity pneumonitis, but that has been ruled out by TBBX (remote), CT chest, and PFTs. She can use nebulizers prn but I dont feel systemic steroids are needed at this time. * Hypoxemia- she should maintain a strict sat >92% at all times. * Lung nodule- there was a 1.3 cm ground glass LENY nodu;le with a tiny solid central component new as of 05/2017, but not visualized on her cardiac CT a few days ago. The etiology is uncertain at this point, but may represent granulomatous disease since she has other OGDs in her spleen and calcified hilar PRASHANTH. Further workup as an outpatient. At least 60 minutes of direct patient contact (twice today) as well as care coordination for a highly complex patient Subjective: Stable overnight. Many questions regarding upcoming surgery. Walking the halls with a walker, but without difficulty Objective: Vital Signs Temp Pulse Resp BP Pulse Ox 36.7 C 89 20 101/70 94 07/02/17 08:13 07/02/17 12:00 07/02/17 12:00 07/02/17 12:00 07/02/17 12:00 Laboratory Results 07/01/17 05:25 07/01/17 05:25 07/01/17 07/02/17 07/03/17 05:59 05:59 05:59 Intake Total 2300 1500 Output Total 1100 Balance 1200 1500 PT 13.3 SEC (12.0-15.0) 06/30/17 13:40 INR 0.99 (0.83-1.16) 06/30/17 13:40 Physical Exam - Physical Exam General Appearance: alert, no apparent distress, obese EENT: PERRL/EOMI, No scleral icterus (R), No scleral icterus (L) Neck: non-tender, supple Respiratory: lungs clear, decreased breath sounds, No respiratory distress, No accessory muscle use, No wheezing Cardiac/Chest: regular rate, rhythm, No edema Abdomen: non-tender, soft, No distended Skin: normal color, warm/dry, No cyanosis Lymphatic: no adenopathy Extremities: No pedal edema Neuro/Psych: alert, normal mood/affect, oriented x 3 ICD10 Worksheet Patient Problems: Problems Problem Status Onset COPD (chronic obstructive pulmonary disease) Acute Hypoxia Acute Left main coronary artery disease Acute Pulmonary HTN Acute Pulmonary artery aneurysm Acute
[2017-07-02] MEDS: SPIRONOLACTONE 25 MG TAB PO SCH (22:50)
[2017-07-03 07:05] LABS: PLATELET COUNT 193 10^3/uL (150-400)
[2017-07-03] MEDS: LEVOTHYROXINE 50 MCG TAB PO SCH (08:13)
[2017-07-03] MEDS: ASPIRIN 81 MG CHEWABLE TAB PO SCH (08:13)
[2017-07-03] MEDS: predniSONE 5 MG TAB PO SCH (08:13)
[2017-07-03] MEDS: ENOXAPARIN 40 MG/0.4 ML SYR SC SCH (08:13)
--- NOTE | 2017-07-03 12:55 | PDCARPN ---
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 She was admitted after her diagnostic right and left heart catheterization on June 30. Her course was complicated by TIA manifest by left facial droop and mild dysarthria. A stroke alert was called from the [facility] and she had negative head CT. She did have a neurological evaluation acutely, through the telemedicine portal. No lytics were required. Within an hour she had resolution of her facial droop and return to normal fluent speech. No other neurological deficits. 1. Giant pulmonary artery aneurysm: This is at high risk of rupture. Etiology is not yet clear. Evaluation for vasculitis such as Bechet's disease is underway. Alpha 1 antitrypsin laboratories are pending. She does have severe pulmonary hypertension which does contribute to aneurysmal formation in the pulmonary artery. It also appears that the main pulmonary artery is compressing her left main coronary artery, which is certainly an unfavorable anatomic issue. She has met again with Dr. Les Waite. Surgical risks reviewed in detail, and the patient understands that she is at higher than usual risk due to her underlying pulmonary hypertension and emphysematous lung disease. Surgery planned for TuesdayJuly 05. 2. Critical pulmonary hypertension: Mean PA pressure 58. RV pressure is also in the 90s, indicating that her RV function is fairly robust. Etiology is likely related to the emphysematous disease in her lungs, being evaluated by Dr. Pillo Kumar. While here in the hospital she will have additional laboratory evaluation including vasculitis workup and alpha 1 antitrypsin. V/Q scan negative for PE. As per Dr. Kumar, if she does undergo cardiac surgery, it would be helpful to have inhaled nitric oxide available for right ventricular afterload reduction in the perioperative period. 3. Hypoxia and emphysematous lung disease: Atypical presentation as she is a never smoker. Ongoing workup as detailed above. Continue supplemental oxygen therapy. She does take chronic low-dose prednisone which will be continued. 4. Left main disease: This is due to extrinsic compression from the pulmonary artery. She will require single-vessel bypass at the time of her PA aneurysm repair. 5. TIA June 30 status post catheterization: She is neurologically back to baseline. Head CT without acute findings. Continue aspirin and statin. 6. Valvular heart disease: Severe pulmonic regurgitation related to aneurysmal dilation of the main pulmonary artery. She also has moderate tricuspid regurgitation. Mild aortic and mitral regurgitation. 07/03/17 12:56 Subjective: She reports feeling at her baseline. She does have exertional dyspnea but this is stable. Reviewed/Discussed With: other (Dr. Pillo Kumar) Objective: Vital Signs (8 Hrs) Temp Pulse Resp BP Pulse Ox 07/03/17 08:00 36.7 C 79 22 H 122/79 H 96 07/03/17 06:49 119/92 H Intake/Output (24 Hrs) 07/02/17 07/03/17 07/04/17 05:59 05:59 05:59 Intake Total 1500 1200 Balance 1500 1200 Intake: Oral (ml) 1500 1200 Other: Weight 69.8 kg Intake Quantity Yes Sufficient Number of Voids Bedside Commode 3 Toilet 1 3 Number of Stools Bedpan 1 No acute distress. Sitting up in chair. JVP 10 cm of water. Regular rate and rhythm with 2/4 whole holodiastolic murmur LLSB Lungs clear to auscultation without wheeze or rales No extremity edema Result Diagrams: 07/03/17 06:54 07/03/17 06:54 Telemetry: Sinus rhythm. Steve. ICD10 Worksheet Patient Problems: Problems Problem Status Onset Pulmonary artery aneurysm Acute Pulmonary HTN Acute COPD (chronic obstructive pulmonary disease) Acute Hypoxia Acute Left main coronary artery disease Acute - ICD10 Problem Qualifiers (1) Pulmonary artery aneurysm (2) Pulmonary HTN (3) COPD (chronic obstructive pulmonary disease) (4) Hypoxia (5) Left main coronary artery disease
--- NOTE | 2017-07-03 14:06 | PDINTPN ---
[facility] Progress Note Assessment/Plan: Assessment/plan 77 F well-known to me from outpatient workup of pulmonary hypertension. 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 She underwent RHC 07/01 revealing a mean PA pressure of 58 with an RAP 18, Cortes CO 4.4, and LVEDP of 15. Multidisciplinary consultation agreed with planned aneurysm resection/repai, PV repair, and likely CABG of LED, which was flattened by the large PA. I suspect her PH is long standing, based on her RV function and functional class (III), and will likely persist postoperatively. Her risk of PA rupture in the absence of surgery is high. * PA aneurysm- discussed in details with Luz Marina Flanagan, and Napoleon. I agree with plans to proceed with surgery which will require coordinated efforts intra - and postoperatively. This appears to be an agreed on therapy despite only rare cases reported in the literature. Her biggest challenges will be hemodynamically, with efforts to be focused towards optimal RV function, including adequate MAP, avoiding agents that can increase PVR such as atracurium , maintaining oxygen, avoiding elevated CO2 and acidosis as well as profound hypothermia. She will need an arterial line and PA catheter perioperatively as well. Inhaled NO is necessary to maintain hemodynamics and will obviate concerns about systemic hypotension and VQ matching (as compared to IV agents). NO only requires daily ABGs to monitor for methemaglobinemia, and monitoring for excess NO2 production which can lead to free radical formation and potential lung injury. We will also have to watch for pulmonary edema, since increased LV preload could result, and if used will require slow weaning to avoid rebound PH and hypoxemia. * * PHTN- I suspect she has primarily group III PH related to COPD/hypoxemia. Connective tissue disease such as Behcets is associated with PA aneurysms of this magnitude, but she has little to support it. RON is a remote possibility and she will eventually require an outpatient sleep study (she is adamant that she does not have this). It is hard to be certain there is not concomitant PAH ( group I), and she may eventually need PAH specific therapy depending on her course. Other serologies are also pending at this time. No inhaled prostacyclins are currently available on formulary. 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 * * ?HP- She was thought at one time to have hypersensitivity pneumonitis, but reported a negative TBBX (complicated by PTX). 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 She denies farm/hay exposure. She has maintained a [employer] for many years, though has been fading it out lately. She appears well-versed concerning psittacosis, but thought the dx of HP was incorrect. She has been maintained on chronic prednisone presumably as a result at low dose (5 mg/day). She can use nebulizers prn but I dont feel additional systemic steroids are needed at this time. She will require stress dose steroids perioperatively (100 mg hydrocortisone) to eliminate unexpected relative adrenal insufficiency as a potential source of postop hypotension. * * Hypoxemia- she should maintain a strict sat >92% at all times. * * Lung nodule- there was a 1.3 cm ground glass LENY nodule with a tiny solid central component new as of 05/2017, but not visualized on her cardiac CT a few days ago. The etiology is uncertain at this point, but may represent granulomatous disease since she has other OGDs in her spleen and calcified hilar PRASHANTH. Further workup as an outpatient. At least 60 minutes of direct patient contact (three times today) as well as care coordination with multiple providers for a highly complex patient 07/03/17 13:57 Subjective: No events, lots of questions Objective: Vital Signs Temp Pulse Resp BP Pulse Ox 36.7 C 79 22 H 122/79 H 96 07/03/17 08:00 07/03/17 08:00 07/03/17 08:00 07/03/17 08:00 07/03/17 08:00 Laboratory Results 07/03/17 06:54 07/03/17 06:54 07/02/17 07/03/17 07/04/17 05:59 05:59 05:59 Intake Total 1500 1200 Balance 1500 1200 PT 13.3 SEC (12.0-15.0) 06/30/17 13:40 INR 0.99 (0.83-1.16) 06/30/17 13:40 Physical Exam - Physical Exam General Appearance: alert, no apparent distress, obese EENT: PERRL/EOMI Neck: supple Respiratory: lungs clear, normal breath sounds, No respiratory distress, No accessory muscle use, No crackles, No rhonchi, No wheezing Cardiac/Chest: regular rate, rhythm, No edema Abdomen: non-tender, soft, No distended Skin: normal color, warm/dry, No cyanosis Extremities: non-tender, other (no clubbing), No pedal edema Neuro/Psych: alert, normal mood/affect, oriented x 3 ICD10 Worksheet Patient Problems: Problems Problem Status Onset COPD (chronic obstructive pulmonary disease) Acute Hypoxia Acute Left main coronary artery disease Acute Pulmonary HTN Acute Pulmonary artery aneurysm Acute
--- NOTE | 2017-07-03 17:08 | HOSPPROG ---
Hospitalist Progress Note Assessment/Plan: 77-year-old female seen because of acute stroke alert and thought possibly have a TIA verses medication side effect. Patient found to have severe pulmonary hypertension with a dilated pulmonary artery. There is also known COPD, chronic respiratory failure and acute on chronic kidney injury with potassium today at 5.3. Plan: Thoracic surgical consultation, intensive care medicine consultation. Patient is tentatively scheduled for surgical repair of her pulmonary artery aneurysm on wednesday 07/05 This has been discussed with the patient and discussed with Dr. Pillo Kumar and nursing. CT scans have been reviewed by myself. -pulmonary aneurysm with pulmonary hypertension. Plan to schedule surgical repair in the next 3-4 days of possible -COPD class 3 with hypoxemia requiring supplemental oxygen. This is currently at her baseline and doing well. -question connective tissue disorder with a negative rheumatoid factor. -acute versus chronic kidney injury with a creatinine of 1.1. This appears to be her baseline. Hyperkalemia noted yesterday at 5.3 is now resolved to a potassium of 5.0. -TIA versus medication side effect. This was likely of a medication side effect and not a TIA she has no neurologic deficit Plan: Per above. Will continue to follow along with you. Patient had many questions about the risks and benefits of her surgery and where to have the surgery, about the surgeons here at [facility] and her pre and postop care she also had concerns regarding the management her COPD postoperatively. All questions were answered and she was reassured. Time: 55 min. Case was discussed with intensive care medicine and with nursing following a phone conversation with cardiothoracic surgery. All questions were answered of the patient and all questions were answered Subjective: No complaints but many questions about the risks and benefits of her surgery and where to have the surgery. Objective: Vital Signs Temp Pulse Resp BP Pulse Ox 36.7 C 79 22 H 122/79 H 96 07/03/17 08:00 07/03/17 08:00 07/03/17 08:00 07/03/17 08:00 07/03/17 08:00 Laboratory Results 07/03/17 06:54 07/03/17 06:54 07/02/17 07/03/17 07/04/17 05:59 05:59 05:59 Intake Total 1500 1200 Balance 1500 1200 PT 13.3 SEC (12.0-15.0) 06/30/17 13:40 INR 0.99 (0.83-1.16) 06/30/17 13:40 - Time Spent With Patient Time Spent with Patient: greater than 35 minutes Time Spent with Patient: Greater than 35 minutes spent on this patients care, greater than 50% of time spent counseling, educating, and coordinating care regarding the above mentioned plan. - Pending Discharge Pending Discharge Within 24 Hours: No Pending Discharge Within 48 Hours: No - Physical Exam Constitutional: no apparent distress Eyes: PERRL, anicteric sclera Ears, Nose, Mouth, Throat: moist mucous membranes, hearing normal Cardiovascular: regular rate and rhythym, no murmur, rub, or gallop, systolic murmur, other (No he was noted) Respiratory: no respiratory distress, reduced air movement, other (Kyphosis of the chest) Gastrointestinal: normoactive bowel sounds, soft, non-tender abdomen, no palpable masses Genitourinary: no bladder fullness Skin: warm Musculoskeletal: full muscle strength Neurologic: AAOx3, CN II-XII Intact Psychiatric: interacting appropriately ICD10 Worksheet Patient Problems: Problems Problem Status Onset COPD (chronic obstructive pulmonary disease) Acute Hypoxia Acute Left main coronary artery disease Acute Pulmonary HTN Acute Pulmonary artery aneurysm Acute
[2017-07-03] MEDS: SPIRONOLACTONE 25 MG TAB PO SCH (21:50)
[2017-07-04 08:24] LABS: PLATELET COUNT 182 10^3/uL (150-400)
[2017-07-04] MEDS: ENOXAPARIN 40 MG/0.4 ML SYR SC SCH (08:25)
[2017-07-04] MEDS: predniSONE 5 MG TAB PO SCH (08:25)
[2017-07-04] MEDS: LEVOTHYROXINE 50 MCG TAB PO SCH (08:25)
[2017-07-04] MEDS: ASPIRIN 81 MG CHEWABLE TAB PO SCH (08:25)
[2017-07-04 08:32] LABS: INR 1.02 (0.83-1.16); PROTIME(PATIENT) 13.6 SEC (12.0-15.0)
--- NOTE | 2017-07-04 09:53 | PDCARPN ---
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 She was admitted after her diagnostic right and left heart catheterization on June 30. Her course was complicated by TIA manifest by left facial droop and mild dysarthria. A stroke alert was called from the [facility] and she had negative head CT. She did have a neurological evaluation acutely, through the telemedicine portal. No lytics were required. Within an hour she had resolution of her facial droop and return to normal fluent speech. No other neurological deficits. 1. Giant pulmonary artery aneurysm: This is at high risk of rupture. Etiology is not yet clear. Evaluation for vasculitis such as Bechet's disease is underway. Alpha 1 antitrypsin laboratories are pending. She does have severe pulmonary hypertension which does contribute to aneurysmal formation in the pulmonary artery. The pulmonary artery aneurysm is compressing her left main coronary artery, which is certainly an unfavorable anatomic issue. She has met again with Dr. Les Waite. Surgical risks reviewed in detail, and the patient understands that she is at higher than usual risk due to her underlying pulmonary hypertension and emphysematous lung disease. Surgery planned for TuesdayJuly 05. We will attempt to have inhaled nitric oxide on hand to assist with direct pulmonary vasodilation the perioperative period. This was discussed in detail with Dr. Pillo Kumar. 2. Critical pulmonary hypertension: Mean PA pressure 58. RV pressure is also in the 90s, indicating that her RV function is fairly robust. Etiology is likely related to the emphysematous disease in her lungs, being evaluated by Dr. Pillo Kumar. While here in the hospital she will have additional laboratory evaluation including vasculitis workup and alpha 1 antitrypsin. V/Q scan negative for PE. As per Dr. Kumar, if she does undergo cardiac surgery, it would be helpful to have inhaled nitric oxide available for right ventricular afterload reduction in the perioperative period. 3. Hypoxia and emphysematous lung disease: Atypical presentation as she is a never smoker. Ongoing workup as detailed above. Continue supplemental oxygen therapy. She does take chronic low-dose prednisone which will be continued. 4. Left main disease: This is due to extrinsic compression from the pulmonary artery. She will require single-vessel bypass at the time of her PA aneurysm repair. 5. TIA June 30 status post catheterization: She is neurologically back to baseline. Head CT without acute findings. Continue aspirin and statin. 6. Valvular heart disease: Severe pulmonic regurgitation related to aneurysmal dilation of the main pulmonary artery. She also has moderate tricuspid regurgitation. Mild aortic and mitral regurgitation. 07/04/17 09:52 Subjective: [place] feels baseline. She did have a little bit of diaphoresis while sitting in a chair yesterday evening. No chest pain Reviewed/Discussed With: family, other (Dr. Waite and Dr. Pillo Kumar) Objective: Vital Signs (8 Hrs) Temp Pulse Resp BP Pulse Ox 07/04/17 07:43 36.8 C 74 24 H 107/70 94 07/04/17 04:00 74 18 127/66 H 94 Intake/Output (24 Hrs) 07/03/17 07/04/17 07/05/17 05:59 05:59 05:59 Intake Total 1200 300 Balance 1200 300 Intake: Oral (ml) 1200 300 Other: Weight 69.8 kg 70.1 kg Intake Quantity Yes Yes Sufficient Number of Voids Toilet 3 4 No acute distress. Sitting up in chair JVP 10 cm water. Regular rate and rhythm with 2/4 holodiastolic murmur at the left lower sternal border Lungs clear bilaterally that was on carotids No lower extremity edema Result Diagrams: 07/04/17 08:10 07/04/17 08:10 Telemetry: Sinus rhythm is salvos of PAT verses short runs of PAF ICD10 Worksheet Patient Problems: Problems Problem Status Onset Pulmonary artery aneurysm Acute Pulmonary HTN Acute COPD (chronic obstructive pulmonary disease) Acute Hypoxia Acute Left main coronary artery disease Acute - ICD10 Problem Qualifiers (1) Pulmonary artery aneurysm (2) Pulmonary HTN (3) COPD (chronic obstructive pulmonary disease) (4) Hypoxia (5) Left main coronary artery disease
--- NOTE | 2017-07-04 13:24 | HOSPPROG ---
Hospitalist Progress Note Assessment/Plan: DIAGNOSES: -severe pulmonary hypertension -large pulmonary artery aneurysm with high risk of rupture -COPD -acute neurologic symptoms, resolved -cause uncertain, suspected to likely be a side effect of sedation medicines verses TIA I had a long discussion with the patient about her planned surgery. At this point she is not wanting to do the surgery here and less she can have it done with nitric oxide. I have reviewed with Dr. Ramin Leo it sounds like nitric oxide will not be available at this hospital for her surgery. She has done me that she will likely want to transfer to the [facility] therefore to have the surgery, where the nitric oxide is going to be available. Will try review with Dr. Valdivia today. I reviewed the case today in detail with Dr. Christopher Leo PLANS: -continue current supportive management including oxygen -try to review her issues with Dr. 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: Sinus Exam: alert oriented skin warm dry color ok resps not labored lungs very diminished but otherwise clear BSs heart regular abd soft nondistended nontender, bowel sounds present Remains free of leg edema so far iv site ok Laboratory data: CBC and Chem panel remain unremarkable today Objective: Vital Signs Temp Pulse Resp BP Pulse Ox 36.9 C 87 20 121/78 H 95 07/04/17 11:44 07/04/17 11:44 07/04/17 11:44 07/04/17 11:44 07/04/17 11:44 Laboratory Results 07/04/17 08:10 07/04/17 08:10 07/03/17 07/04/17 07/05/17 06:59 06:59 06:59 Intake Total 1200 300 Balance 1200 300 PT 13.6 SEC (12.0-15.0) 07/04/17 08:10 INR 1.02 (0.83-1.16) 07/04/17 08:10 ICD10 Worksheet Patient Problems: Problems Problem Status Onset COPD (chronic obstructive pulmonary disease) Acute Hypoxia Acute Left main coronary artery disease Acute Pulmonary HTN Acute Pulmonary artery aneurysm Acute
[2017-07-04] MEDS ORDERED: MIDAZOLAM 2 MG/2 ML VIAL ONE (14:48)
[2017-07-04] MEDS ORDERED: fentaNYL 100 MCG/2 ML INJ ONE (14:48)
[2017-07-04] MEDS ORDERED: LIDOCAINE 1% 300 MG/30 ML SDV ONE (14:48)
--- NOTE | 2017-07-04 14:51 | PDINTPN ---
Nurse Practitioner Home Assessments Progress Note Assessment/Plan: Assessment: 77 F with pulmonary hypertension. 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 She underwent RHC 07/01 revealing a mean PA pressure of 58 with an RAP 18, Cortes CO 4.4, and LVEDP of 15. Multidisciplinary consultation agreed with planned aneurysm resection/repair, PV repair, and likely CABG of LED , which was flattened by the large PA. I suspect her PH is long standing, based on her RV function and functional class (III), and will likely persist postoperatively. Her risk of PA rupture in the absence of surgery is high. * PA aneurysm- discussed in details with Luz Marina Flanagan, and Napoleon. I agree with plans to proceed with surgery which will require coordinated efforts intra - and postoperatively. Her biggest challenges will be hemodynamically, with efforts to be focused towards optimal RV function, including adequate MAP, avoiding agents that can increase PVR such as atracurium, maintaining oxygen, avoiding elevated CO2 and acidosis as well as profound hypothermia. She will need an arterial line and PA catheter perioperatively as well. Inhaled NO would be useful but is not available. * PHTN- I suspect she has primarily group III PH related to COPD/hypoxemia. Connective tissue disease such as Behcets is associated with PA aneurysms of this magnitude, but she has little to support it. RON is a remote possibility and she will eventually require an outpatient sleep study (she is adamant that she does not have this). It is hard to be certain there is not concomitant PAH ( group I), and she may eventually need PAH specific therapy depending on her course. Other serologies are also pending at this time. 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 She was thought at one time to have hypersentitivity pneumonitis, but that has been ruled out by TBBX (remote), CT chest, and PFTs. She can use nebulizers prn but I dont feel systemic steroids are needed at this time. * Hypoxemia- she should maintain a strict sat >92% at all times. * Lung nodule- there was a 1.3 cm ground glass LENY nodu;le with a tiny solid central component new as of 05/2017, but not visualized on her cardiac CT a few days ago. The etiology is uncertain at this point, but may represent granulomatous disease since she has other OGDs in her spleen and calcified hilar PRASHANTH. Further workup as an outpatient. Plan: Place PA cath to reassess PA pressures, place [place] as well. Plan to proceed with PA aneurism repair, CABG. 07/04/17 14:52 07/04/17 15:09 Subjective: Breathing feels OK, able to walk around ICU twice with just one stop for desats. Objective: Vital Signs Temp Pulse Resp BP Pulse Ox 36.9 C 87 20 121/78 H 95 07/04/17 11:44 07/04/17 11:44 07/04/17 11:44 07/04/17 11:44 07/04/17 11:44 Laboratory Results 07/04/17 08:10 07/04/17 08:10 07/03/17 07/04/17 07/05/17 05:59 05:59 05:59 Intake Total 1200 300 Balance 1200 300 PT 13.6 SEC (12.0-15.0) 07/04/17 08:10 INR 1.02 (0.83-1.16) 07/04/17 08:10 Physical Exam - Physical Exam General Appearance: alert, no apparent distress EENT: normal ENT inspection Neck: normal inspection Respiratory: lungs clear, normal breath sounds Cardiac/Chest: regular rate, rhythm, No edema Abdomen: normal bowel sounds, non-tender Skin: normal color, warm/dry Extremities: normal inspection Neuro/Psych: alert, normal mood/affect, oriented x 3 ICD10 Worksheet Patient Problems: Problems Problem Status Onset COPD (chronic obstructive pulmonary disease) Acute Hypoxia Acute Left main coronary artery disease Acute Pulmonary HTN Acute Pulmonary artery aneurysm Acute
--- NOTE | 2017-07-04 15:27 | PDHPUP ---
History & Physical Update H&P update statement: This history and physical update is based on an assessment of the patient which was completed after admission or registration (within 24 hours), but prior to the surgery/procedure.
--- NOTE | 2017-07-04 15:27 | PDPROPOC ---
Sedation Plan of Care Sedation Plan of Care: vital signs stable, mental status noted, patient educated of risks, benefits, alternatives, patient can tolerate sedation ASA Classification: ASA 2 Planned drugs: fentanyl, midazolam Mallampati Score: Class 3 Mallampati Reference Image:
--- NOTE | 2017-07-04 15:54 | ASMTCMCOM ---
CM Note CM Note Notes: To proceed with surgery: COPD, Hypoxia, CAD, Pulm HTN, Pulm artery aneurysm. CM to follow for discharge needs. Date Signed: 07/04/2017 03:54 PM Electronically Signed By:Cynthia Nash LCSW
[2017-07-04] MEDS: SILDENAFIL CITRATE 20 MG TAB PO SCH ×2 (16:44→20:47)
[2017-07-04] MEDS ORDERED: FUROSEMIDE 20 MG/2 ML VIAL IVP ONE (16:45)
--- NOTE | 2017-07-04 18:19 | CPIP ---
[f rep st] INVASIVE CARDIAC PROCEDURE DATE OF PROCEDURE: 07/04/2017 PROCEDURE: Right heart catheterization. INDICATION: 1. Pulmonary hypertension. 2. Operative management of patient. ACCESS: Patient was prepped and draped in sterile fashion. 1% lidocaine was used to anesthetize the right inguinal region. An 8-Pashto introducer sheath was placed selectively into the right common f emoral vein via modified Seldinger technique. RIGHT HEART CATHETERIZATION: The right heart catheter was advanced into the right atrium and pressur e obtained. The right atrial pressure was 12 mmHg with a large V-wave. Catheter was then advanced i n the pulmonary artery and pressure obtained. The pulmonary artery pressure was 73/27 with a mean pu lmonary artery pressure of 46 mmHg. COMPLICATIONS: None. CONCLUSIONS: Severe pulmonary hypertension with a mean pulmonary artery pressure of 46 mmHg. /[id number]/MODL
[2017-07-04] MEDS ORDERED: LORazepam 2 MG/ML INJ IVP PRN (20:19)
[2017-07-04] MEDS: SENNOSIDES/DOCUSATE SODIUM TAB PO SCH (20:47)
[2017-07-04] MEDS: ROSUVASTATIN CALCIUM 10 MG TAB PO SCH (20:47)
[2017-07-04] MEDS: SPIRONOLACTONE 25 MG TAB PO SCH (20:48)
[2017-07-04] MEDS ORDERED: CHLORHEXIDINE GLUC HIBICLENS 118 ML BTL TP SCH (21:00)
[2017-07-04] MEDS: MUPIROCIN 2% 22 GM OINT NS SCH (23:02)
[2017-07-05 04:22] VITALS: TEMP 97.5
[2017-07-05 05:26] LABS: PLATELET COUNT 184 10^3/uL (150-400)
[2017-07-05] MEDS ORDERED: VANCOMYCIN 1 GM in D5W 250 ML IV ONE (06:00)
[2017-07-05] MEDS ORDERED: MILRINONE/DEXTROSE/100 ML BAG IV ONE (08:13)
[2017-07-05] MEDS ORDERED: PROTAMINE SULFATE 50 MG/5 ML VIAL IVP ONE ×4 (08:13→20:26)
[2017-07-05] MEDS ORDERED: CALCIUM CHLORIDE 1 GM/10 ML INJ ONE ×5 (08:13→20:25)
[2017-07-05] MEDS ORDERED: HEPARIN 10,000 UNIT/10 ML MDV (1,000 UNIT/ML) ONE ×4 (08:14→20:02)
[2017-07-05] MEDS ORDERED: niCARdipine/NACL/200 ML BAG IV ONE (08:14)
[2017-07-05] MEDS ORDERED: NA BICARBONATE 50 MEQ/50 ML VIAL ONE ×3 (08:14→20:07)
[2017-07-05] MEDS ORDERED: ADENOSINE 6 MG/2 ML VIAL ONE (08:15)
[2017-07-05] MEDS ORDERED: AMIODARONE HCL 150 MG/3 ML VIAL ONE ×2 (08:15→08:18)
[2017-07-05] MEDS ORDERED: ceFAZolin 1 GM VIAL ONE (08:15)
[2017-07-05] MEDS: SILDENAFIL CITRATE 20 MG TAB PO SCH ×2 (08:16→20:14)
[2017-07-05] MEDS ORDERED: ALBUMIN 5% 250 ML BOTTLE IV ONE ×2 (08:17→15:34)
[2017-07-05] MEDS ORDERED: LIDOCAINE 2% 100 MG/5 ML SYR ONE (08:17)
[2017-07-05] MEDS ORDERED: CITRATE DEXTROSE SOLN 500 ML BAG ONE ×3 (08:18→19:48)
[2017-07-05] MEDS ORDERED: MAGNESIUM SULFATE 1 GM/2 ML VIAL ONE (08:18)
[2017-07-05] MEDS ORDERED: methylPREDNISolone SOD SUCC 1 GM/8 ML VIAL ONE (08:19)
[2017-07-05] MEDS: ASPIRIN 81 MG CHEWABLE TAB PO SCH (08:26)
[2017-07-05] MEDS: predniSONE 5 MG TAB PO SCH (08:26)
[2017-07-05] MEDS: SENNOSIDES/DOCUSATE SODIUM TAB PO SCH (08:27)
[2017-07-05] MEDS ORDERED: SODIUM BICARBONATE 10 MEQ/10 ML SYR IVP ONE (08:37)
[2017-07-05] MEDS: MUPIROCIN 2% 22 GM OINT NS SCH (08:40)
[2017-07-05] MEDS ORDERED: MANNITOL 25% 12.5 GM/50 ML VIAL IVP ONE (09:00)
[2017-07-05] MEDS ORDERED: DOBUTamine/DEXTROSE 250 ML IV ONE (09:00)
[2017-07-05] MEDS ORDERED: NOREPINEPHRINE BITARTRATE 16 MG in NS 250 ML IV ONE ×2 (09:00→20:00)
[2017-07-05] MEDS: LEVOTHYROXINE 50 MCG TAB PO SCH (09:00)
[2017-07-05] MEDS ORDERED: TRANEXAMIC ACID 1,000 MG in NS 100 ML IV ONE (09:00)
[2017-07-05] MEDS ORDERED: SODIUM BICARBONATE 20 MEQ, LIDOCAINE 1% 10 ML in NORMOSOL-R 1,000 ML MISC ONE (09:00)
[2017-07-05] MEDS ORDERED: VERAPAMIL 5 MG, NITROGLYCERIN 2.5 MG, HEPARIN 500 UNIT, SODIUM BICARBONATE 0.2 MEQ in L... MISC ONE (09:00)
[2017-07-05] MEDS ORDERED: INSULIN REGULAR HUMAN 100 UNIT in NS 100 ML IV ONE (09:00)
[2017-07-05] MEDS ORDERED: NITROGLYCERIN/DEXTROSE 250 ML IV ONE (09:00)
[2017-07-05] MEDS ORDERED: MILRINONE/DEXTROSE 100 ML IV ONE (09:00)
[2017-07-05] MEDS ORDERED: PHENYLEPHRINE HCL 50 MG in NS 250 ML IV ONE (09:00)
[2017-07-05] MEDS ORDERED: CITRATE DEXTROSE SOLN 500 ML BAG MISC ONE ×2 (09:00→20:00)
[2017-07-05] MEDS ORDERED: VANCOMYCIN PHARMACY TO DOSE MISC ONE (09:00)
[2017-07-05] MEDS ORDERED: MINERAL OIL 10 ML VIAL ONE (10:00)
[2017-07-05] MEDS ORDERED: VERAPAMIL 5 MG/2 ML VIAL ONE (10:00)
[2017-07-05] MEDS ORDERED: PAPAVERINE HCL 60 MG/2 ML SDV ONE (10:00)
[2017-07-05 10:12] VITALS: BP 91/58; PULSE 83; RESP 17; O2SAT 95
[2017-07-05] MEDS ORDERED: MIDAZOLAM 2 MG/2 ML VIAL IVP ONE (10:35)
--- NOTE | 2017-07-05 10:35 | PDANEPAE ---
ANE History of Present Illness resection of PA aneurysm and pulm valve and conduit replacemtn ANE Past Medical History - Cardiovascular History Hx Hypertension: Yes Hx Arrhythmias: No Hx Chest Pain: Yes Hx Coronary Artery / Peripheral Vascular Disease: Yes Hx CHF / Valvular Disease: Yes Hx Palpitations: No - Pulmonary History Hx COPD: Yes Hx Asthma/Reactive Airway Disease: Yes Hx Recent Upper Respiratory Infection: No Hx Oxygen in Use at Home: Yes O2 in Use at Home (L/minute): 4 Hx Sleep Apnea: No Pulmonary History Comment: severe puim artery dilation. moderate bullous COPD. O2 dependant - Neurologic History Hx Cerebrovascular Accident: Yes Hx Seizures: No Hx Dementia: No Neurologic History Comment: tia - Endocrine History Hx Diabetes: No Hypothyroid: No Hyperthyroid: No - Renal History Hx Renal Disorders: No - Liver History Hx Hepatic Disorders: No - Chronic Pain History Chronic Pain: Yes - Surgical History Prior Surgeries: cat ANE Review of Systems Review of Systems: - Exercise capacity METS (RN): 3 METS ANE Patient History - Allergies Allergies/Adverse Reactions: levofloxacin [From Levaquin] Allergy (Intermediate, Verified 06/27/17 19:44) Unknown albuterol Allergy (Mild, Verified 06/27/17 19:44) lisinopril Allergy (Mild, Verified 06/27/17 19:44) Unknown atorvastatin [From Lipitor] Allergy (Verified 06/30/17 14:28) cefuroxime Allergy (Verified 06/27/17 19:48) Unknown hydrochlorothiazide Allergy (Verified 06/30/17 14:28) Penicillins Allergy (Verified 06/27/17 19:48) Unknown rosuvastatin [From Crestor] Allergy (Verified 06/30/17 14:28) - Home Medications Home Medications: Aspirin EC [Aspirin EC 81 mg (*)] 81 mg PO MOWEFR@06/27/17 [Last Taken Unknown] Levothyroxine [Synthroid 50 mcg (*)] 50 mcg PO DAILY 06/27/17 [Last Taken ] Losartan Potassium [Cozaar 25 mg (*)] 25 mg PO HS 06/27/17 [Last Taken 06/29/17] Rosuvastatin Calcium [Crestor 5mg] 2.5 mg PO MOWEFR@06/27/17 [Last Taken Unknown] Spironolactone [Aldactone 25 MG (*)] 25 mg PO HS 06/27/17 [Last Taken 06/29/17] predniSONE 5 mg PO DAILY 06/27/17 [Last Taken 06/29/17] - Smoking Hx Smoking Status: Never smoked - Alcohol Use Alcohol Use: None ANE Labs/Vital Signs - Labs Result Diagrams: 07/05/17 05:10 07/05/17 05:10 - Vital Signs Blood Pressure: 91/58 Heart Rate: 83 Respiratory Rate: 17 O2 Sat (%): 95 Height: 160 cm Weight: 72.6 kg ANE Physical Exam - Airway Mallampati Score: Class 2 - Pulmonary Pulmonary: no respiratory distress - Cardiovascular Cardiovascular: regular rate and rhythym - ASA Status ASA Status: IV ANE Anesthesia Plan Anesthesia Plan: general endotracheal anesthesia Lines/Monitors: arterial line, central line, KATHLEEN
[2017-07-05] MEDS ORDERED: PHENYLEPHRINE 10 MG/ML SDV ONE (10:43)
[2017-07-05] MEDS ORDERED: ROCURONIUM 100 MG/10 ML VIAL ONE (10:43)
[2017-07-05] MEDS ORDERED: SUCCINYLCHOLINE CHLORIDE 200 MG/10 ML SYR IVP ONE (10:43)
[2017-07-05] MEDS ORDERED: LIDOCAINE 2% 5 ML SDV ONE (10:45)
[2017-07-05] MEDS ORDERED: PROPOFOL 200 MG/20 ML VIAL ONE (10:48)
[2017-07-05] MEDS ORDERED: fentaNYL 250 MCG/5 ML INJ ONE ×2 (10:48)
[2017-07-05] MEDS ORDERED: MIDAZOLAM 2 MG/2 ML VIAL ONE ×2 (15:15→17:42)
[2017-07-05] MEDS ORDERED: ALBUMIN 25% 50 ML SOLN IV ONE (15:33)
--- NOTE | 2017-07-05 17:15 | PDINTPN ---
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 She underwent RHC 07/01 revealing a mean PA pressure of 58 with an RAP 18, [place] CO 4.4, and LVEDP of 15. Multidisciplinary consultation agreed with planned aneurysm resection/repair, PV repair, and likely CABG of LED , which was flattened by the large PA. I suspect her PH is long standing, based on her RV function and functional class (III), and will likely persist postoperatively. Her risk of PA rupture in the absence of surgery is high. * PA aneurysm- discussed in details with Luz Marina Flanagan, and Napoleon. I agree with plans to proceed with surgery which will require coordinated efforts intra - and postoperatively. Her biggest challenges will be hemodynamically, with efforts to be focused towards optimal RV function, including adequate MAP, avoiding agents that can increase PVR such as atracurium, maintaining oxygen, avoiding elevated CO2 and acidosis as well as profound hypothermia. She will need an arterial line and PA catheter perioperatively as well. Inhaled NO would be useful but is not available. * PHTN- I suspect she has primarily group III PH related to COPD/hypoxemia. Connective tissue disease such as Behcets is associated with PA aneurysms of this magnitude, but she has little to support it. RON is a remote possibility and she will eventually require an outpatient sleep study (she is adamant that she does not have this). It is hard to be certain there is not concomitant PAH ( group I), and she may eventually need PAH specific therapy depending on her course. Other serologies are also pending at this time. Her PAP this morning is 60/30. 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 She was thought at one time to have hypersentitivity pneumonitis, but that has been ruled out by TBBX (remote), CT chest, and PFTs. She can use nebulizers prn but I dont feel systemic steroids are needed at this time. * Hypoxemia- she should maintain a strict sat >92% at all times. * Lung nodule- there was a 1.3 cm ground glass LENY nodu;le with a tiny solid central component new as of 05/2017, but not visualized on her cardiac CT a few days ago. The etiology is uncertain at this point, but may represent granulomatous disease since she has other OGDs in her spleen and calcified hilar PRASHANTH. Further workup as an outpatient. Plan: Plan to proceed with PA aneurism repair, CABG. Maintain sats >92%, CO2 mid -30s. 07/05/17 17:13 Subjective: Rested well overnight. No complaints this AM. Objective: Vital Signs Temp Pulse Resp BP Pulse Ox 36.4 C 83 17 91/58 L 95 07/05/17 08:00 07/05/17 10:34 07/05/17 10:34 07/05/17 10:34 07/05/17 10:34 Laboratory Results 07/05/17 05:10 07/05/17 05:10 07/04/17 07/05/17 07/06/17 05:59 05:59 05:59 Intake Total 300 300 Output Total 1990 Balance 300 -1690 PT 13.6 SEC (12.0-15.0) 07/04/17 08:10 INR 1.02 (0.83-1.16) 07/04/17 08:10 Physical Exam - Physical Exam General Appearance: alert, no apparent distress EENT: normal ENT inspection Neck: normal inspection Respiratory: lungs clear Cardiac/Chest: regular rate, rhythm, No edema Abdomen: normal bowel sounds, non-tender Skin: normal color, warm/dry Extremities: normal inspection Neuro/Psych: alert, normal mood/affect, oriented x 3 ICD10 Worksheet Patient Problems: Problems Problem Status Onset COPD (chronic obstructive pulmonary disease) Acute Hypoxia Acute Left main coronary artery disease Acute Pulmonary HTN Acute Pulmonary artery aneurysm Acute
--- NOTE | 2017-07-05 18:11 | HOSPPROG ---
Hospitalist Progress Note Assessment/Plan: Patient seen this morning before her surgery DIAGNOSES: -severe pulmonary hypertension -large pulmonary artery aneurysm with high risk of rupture -COPD -acute neurologic symptoms, resolved -cause uncertain, suspected to likely be a side effect of sedation medicines verses TIA PLANS: -for surgery for repair of pulmonary artery aneurysm today Will follow up postoperative, but her care will be primarily the by the cardiovascular surgery and pulmonology team at this time SUBJECTIVE: No change in symptoms overnight overall No new dyspnea, chest pain, fever symptoms OBJECTIVE Vitals reviewed: Stable without fever Chief [employer], my review: Sinus Exam: alert oriented skin warm dry color ok resps not labored lungs very diminished but otherwise clear BSs iv site ok Objective: Vital Signs Temp Pulse Resp BP Pulse Ox 36.4 C 83 17 91/58 L 95 07/05/17 08:00 07/05/17 10:34 07/05/17 10:34 07/05/17 10:34 07/05/17 10:34 Laboratory Results 07/05/17 05:10 07/05/17 05:10 07/04/17 07/05/17 07/06/17 06:59 06:59 06:59 Intake Total 300 300 Output Total 1989 Balance 300 -1690 PT 13.6 SEC (12.0-15.0) 07/04/17 08:10 INR 1.02 (0.83-1.16) 07/04/17 08:10 ICD10 Worksheet Patient Problems: Problems Problem Status Onset COPD (chronic obstructive pulmonary disease) Acute Hypoxia Acute Left main coronary artery disease Acute Pulmonary HTN Acute Pulmonary artery aneurysm Acute
[2017-07-05] MEDS ORDERED: ROCURONIUM 50 MG/5 ML VIAL ONE ×2 (18:29→19:49)
[2017-07-05] MEDS ORDERED: EPINEPHrine 1 MG/10 ML SYR IVP ONE ×2 (18:54)
[2017-07-05] MEDS ORDERED: ALBUMIN 5% 500 ML BOTTLE IV ONE (20:24)
[2017-07-05] MEDS ORDERED: MAGNESIUM SULF 2 GM/WATER 50 ML BAG IV ONE (20:25)
--- NOTE | 2017-07-06 06:31 | GOP ---
[f rep st] OPERATIVE REPORT DATE OF OPERATION: 07/05/2017 SURGEON: Les Waite DO PREOPERATIVE DIAGNOSIS: 1. 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 2. Severe compression of the left main coronary artery secondary to the right pulmonary artery enlargement. 3. Chronic obstructive pulmonary disease, severe. 4. Pulmonary hypertension, moderate, felt to be due to underlying chronic obstructive pulmonary disease. POSTOPERATIVE DIAGNOSIS: 1. 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 2. Severe compression of the left main coronary artery secondary to the right pulmonary artery enlargement. 3. Chronic obstructive pulmonary disease, severe. 4. Pulmonary hypertension, moderate, felt to be due to underlying chronic obstructive pulmonary disease. 5. 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 Postoperative coagulopathy PROCEDURE PERFORMED: Reconstruction of Pulmonary outflow tract with bifurcated conduit utilizing #32 and #22 hemasheild graft with side to side graft of 32 to 34 graft, pulmonic valve replacement #27 Magna valve, replace ascending aorta # 32 hemasheild graft FINDINGS: Detailed below INDICATIONS: This is a 77-year-old female who came to me for severe shortness of breath which had worsened. Please see office notes. She had a history of known COPD with emphysema of uncertain etiology. Preoperatively, we scheduled her for pulmonary function studies, which showed an FEV1 of approximately 58% of predicted. She was on chronic O2 at home and at night. Extensive evaluation was performed by Pulmonary Medicine. She was scheduled for right and left heart cath. She was brought into the hospital and underwent diagnostic left and right heart cath by Dr. Raza, at which time she became rather hypotensive and had some neurological changes, as well as unresponsiveness during the cath. She was noted to have severe left main stenosis from the pulmonary artery aneurysm, as well as while in extremis, her PA pressures were systemic in the 90s. She underwent diagnostic CAT scan and showed no evidence of stroke. Because of her severe symptomatic status and left main stenosis, she was kept in hospital, admitted to the ICU for more urgent surgical intervention. I saw her in the hospital, recommended surgery on this admission, at which time we would replace the pulmonary outflow tract, pulmonic valve, and possibly do a tricuspid ring annuloplasty, although her TR was not that severe, and her right heart, although enlarged, was not markedly abnormal and had good systolic function. Her PA pressures on preoperative echoes were always in the mid 50s, and I suspected that her pulmonary hypertension was not as severe as during the heart catheterization when she had some hemodynamic instability. For that reason, despite multiple consultants recommending that we have nitric oxide available, this is not a drug that I have ever used nor did I think it was warranted. For that reason, she was offered the opportunity to go elsewhere for surgery, but was adamant about staying here, particularly when I assured her that if her repeat pulmonary artery pressures could be lowered significantly with just medical therapy, that I did not think nitric oxide was approved for nor indicated nor would it be necessary. We put a Model-Cody catheter into her the night before surgery and gave her 20 mg of Lasix, and her PAs went from 72 to 46 when she came to the operating room after pretty significant diuresis. Her CVP remained 10, and I felt that some of her pulmonary hypertension was fluid overload as well. Again , we had multiple discussions with her, her sister and 2 sons, both by telephone , and again, in the morning prior to surgery. I again reiterated that if they were uncomfortable, I would be happy to transfer them, but I did not think that nitric oxide would be indicated nor necessary. I did quote her a higher risk mostly because of her pulmonary disease. I did note that she had enlargement of ascending aorta and I felt that this was likely a connective tissue disorder , and given her age and frailty, that did increase the risk significantly approaching 10-12%. I felt confident that this highly motivated delightful lady would do well with surgery and she consented, and we then proceeded with surgery in the afternoon after having met with all her family members who came from out of town. Again, her PA pressures were in the mid 40s when she came to the operating room, as high as 60 at times, but her systolic pressure was above 120 during those episodes. Her CVP was low, and on echo, her cardiac function was noted to be excellent with some enlargement of the right ventricle, but no TR, and good biventricular function. DESCRIPTION OF PROCEDURE: She was brought to the operating room, prepped and draped in sterile classical manner. During sternotomy, it was noted that her skin was paper thin and quite friable which we made note of. 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 She was then heparinized. We then carefully opened the pericardium. The aneurysm was adherent to the pericardium , but contained without evidence of rupture. After heparinization, bicaval cannulas were placed in very friable atrial tissue, which was reinforced with felt. All her tissues were quite friable. Her aorta, although measured 4.2 cm, appeared to be adequate for cannulation, and I did not plan to replace it despite its size, given her comorbidities, age, and the complexity of her operation. Vein was harvested from both legs in order to try to find decent vein, and in fact, the vein ended up being quite poor, never dilating more than 2.5 mm, and was varicose and was very friable. Because of that, I felt that I would then alter the operation and maybe reduce the size of the right pulmonary artery to try to eliminate any compression of the left main coronary artery, extending the planned repair further into the bifurcations other than initially planned. She was cannulated without incident. We then went on bypass and allowed her temperature to drift. An LV sump was placed through the right superior pulmonary vein and a sump was placed into the aneurysm when it was opened. We opened the aneurysm and retracted the edges. I then noted that the orifice of the left main pulmonary artery was around 34 mm and the right was around 28. They were markedly displaced, and I felt that again that we wanted to relieve any pressure on the right main pulmonary artery, and for that reason , I planned to do an end-to-end 32 mm Hemashield graft with felt reinforcement with a continuous running suture reinforced in multiple sites to the left main pulmonary artery. This anastomosis was then covered with BioGlue, although her tissue was extremely thin-walled and friable. I did grab some surrounding adventitial soft tissues to bolster it. It appeared to be an adequate anastomosis. I then measured the right orifice as previously stated, but downsized to a 22 Hemashield graft, which was then sewn end-to-side slightly beveled to the right main pulmonary artery, which I felt would also give me better access to anastomoses if there were any bleeding or issues. I then created an incision in the left main pulmonary artery graft and did an end-to- side graft anastomosis of the right into the side of the left, creating somewhat of a Y anastomosis directly into the side of it. I then measured it to the pulmonary valve and then used interrupted 2-0 Tycron pledgeted mattress sutures placed through the anulus, staying above the anulus of the valve to avoid the left main coronary artery, then seating a 27 mm bioprosthesis between it and the right ventricular outflow tract anastomosing it to the 32 mm Hemashield graft. These tissues were markedly thin-walled and friable. Again, they were reinforced with BioGlue and then placed without any sort of tension. It then became evident that the aorta started to leak and tear between the aorta and main pulmonary artery, and I thought maybe I had skinned the aorta in that area dissecting the pulmonary artery off, but in fact, the pulmonary artery was still attached there. This was quite unusual and difficult to explain. It was initially just a 0.5 cm rent between those 2 structures. Again , we did this with the heart beating and just drifting with caval tapes to avoid any ischemia time to the right ventricle, and I did not think that the pump run would be that long. Initially I was able to repair the aorta with a felt patch and reinforced 4-0 Prolene sutures, and it seemed intact. I removed the cross-clamp. Spontaneous cardiac activity was noted to resume. The patient was then easily weaned from bypass. However, it then became evident that she had rather profuse bleeding. After spending some time examining it, it was coming from the most posterior portion of the [id number] anastomosis of the right main pulmonary artery into the side of the left main pulmonary artery graft. I then went back on pump and fixed that with a pledgeted mattress suture. We then weaned from bypass again, at which point, the aorta again started to disrupt extending more posterior. I spent some time trying to fix that and thought again it was under control. Again, came off bypass. Gave protamine, with just Primacor and a little bit of Levophed. The right heart was moving exceptionally well and the patient was hemodynamically stable. Again , the aorta disrupted, and on the external surface appeared normal to me. I did not see any evidence of dissection or anything like that. I then re- arrested the heart, excised the ascending aorta from the sinotubular junction where the tears were up to the cross-clamp, and inserted a short segment of 32 mm Hemashield graft end-to-end, reinforced in several spots with pledgeted mattress sutures. These were tested. No bleeding was encountered. BioGlue was applied, and the cross-clamp was then removed. We then easily weaned from bypass without difficulty. Heparin was reversed with protamine, and then we began to experience pretty profound bleeding from the back wall of the aortas proximal anastomosis. I then tried to repair that with multiple 4-0 Prolene felt reinforced sutures, which continued to tear. We had been on pump for quite some time. Prior to that, I was concerned, but had to go back on bypass. I then re-heparinized, went back on bypass. Under low-flow situation, was able to fix that proximal anastomosis without further bleeding. We again weaned from bypass without difficulty. Inotropic support was starting to increase as far as what was needed, although right ventricular function appeared to be well preserved and PAs were never above 45-60 when the patient was full and hemodynamically stable. Heparin was reversed with protamine again. The right atrial cannula was removed, and the entire right atrial wall basically disrupted with gentle retraction trying to tighten the suture. There was approximately a 4 cm rent from just gentle traction. At that point, it became evident that the tissues were consistently bad throughout. I tried to fix it off pump, but had to re-heparinize, go back on pump again. I then without arresting the heart and allowing the heart to beat, I repaired the right atrium. At this point, we had been on pump for at least 4 hours and trying to come off bypass, the heart was hypokinetic. We decided to place a balloon pump to assist, and upon looking at the descending thoracic aorta, it became evident that she had a dissection flap there. At this point, I felt that the cardiac function was quite poor, unable to be hemodynamically stabilized despite a balloon pump and inotropic support, and then she again started to bleed from multiple sites where the tissues were tearing and it became evident that we were going to be unable to fix any more of these leaks. Given her cardiac function and prolonged exposure to cardiopulmonary bypass, we then decided to discontinue support. She was exsanguinated. The cannulas were closed and oversewn. The sternum was gently reapproximated, as was the skin. I then met with the family and detailed the predominant issue being the aortic suture line bleeding despite multiple attempts to repair it, coagulopathy, and ultimately left ventricular failure due to its prolonged cardiopulmonary bypass. OUTCOME: Patient intraoperatively. /[id number]/MODL MTDD
--- NOTE | 2017-07-07 16:49 | ASDISCHSUM ---
Discharge Information Plan Status:Home with No Needs Medically Cleared to Leave: Discharge Date:07/05/2017 08:30 PM CM D/C Disposition: ADT D/C Disposition: Projected Discharge Date:07/05/2017 08:30 PM Transportation at D/C: Discharge Delay Reason: Follow-Up Date:07/05/2017 08:30 PM Discharge Slot: Final Diagnosis: Placement Information Patient Contact Information Contact Name:AMBER Relationship:Sarkis Address: Work Phone: City:[facility] Phone: State/Collective IP Code:[place] Email: Financial Information Financial Class: Primary Plan Desc:MEDICARE INPATIENT Primary Plan Number:[id number] Secondary Plan Desc: OUT OF STATE [facility] Secondary Plan Number:[id number] Assessment Information [facility] Initial CM Assessment Living Arrangements What is your living Answers: Alone arrangement? Who do you live with? Type Of Residence What kind of residence do Answers: House you live in? Discharge Plan Comments Coordination Status Comments Notes: Patient is a 77yo single female who was admitted for hypoxia and pulmonary HTN. No therapies have been ordered yet. D/C plan TBD. CM will follow. Date Signed: 07/01/2017 03:28 PM Electronically Signed By:Chen Ca LCSW [facility] CM Progress Note CM Note CM Note Notes: To proceed with surgery: COPD, Hypoxia, CAD, Pulm HTN, Pulm artery aneurysm. CM to follow for discharge needs. Date Signed: 07/04/2017 03:54 PM Electronically Signed By:Cynthia Nash LCSW Intervention Information
--- NOTE | 2017-07-11 14:18 | GPROG ---
[f rep st] PROGRESS NOTE POSTANESTHESIA NOTE The patient in the operating room. /[id number]/MODL
== END 2017-07-05 20:30 | disposition expired | DRG 216 ==
LOC: FCATH 12:48 → F2W 18:44 → F2N 22:45 → OBSVTOIN 07-01 14:46 → F2N 07-04 15:27
PROVIDERS: ADMIT Internal Medicine Cardiovascular Disease; ATTEND Internal Medicine Cardiovascular Disease
PROC: 4A023N8 Measurement of Cardiac Sampling and Pressure, Bilateral, Percutaneous Approach (ICD-10-PCS; 2017-06-30)
PROC: B2111ZZ Fluoroscopy of Multiple Coronary Arteries using Low Osmolar Contrast (ICD-10-PCS; 2017-06-30)
PROC: 02RF0JZ Replacement of Aortic Valve with Synthetic Substitute, Open Approach (ICD-10-PCS; principal; 2017-07-05 11:00)
PROC: 02Q60ZZ Repair Right Atrium, Open Approach (ICD-10-PCS; principal; 2017-07-05 11:00)
PROC: 021 Heart and Great Vessels, Bypass (ICD-10-PCS; principal; 2017-07-05 11:00)
PROC: 5A1221Z Performance of Cardiac Output, Continuous (ICD-10-PCS; principal; 2017-07-05 11:00)
PROC: 02R Heart and Great Vessels, Replacement (ICD-10-PCS; principal; 2017-07-05 11:00)
PROC: 02QF0ZZ Repair Aortic Valve, Open Approach (ICD-10-PCS; principal; 2017-07-05 11:00)
PROC: 30233R1 Transfusion of Nonautologous Platelets into Peripheral Vein, Percutaneous Approach (ICD-10-PCS; 2017-07-05 11:00)
PROC: 30233L1 Transfusion of Nonautologous Fresh Plasma into Peripheral Vein, Percutaneous Approach (ICD-10-PCS; 2017-07-05 11:00)
PROC: 30233N1 Transfusion of Nonautologous Red Blood Cells into Peripheral Vein, Percutaneous Approach (ICD-10-PCS; 2017-07-05 11:00)
DX: I28.1 Aneurysm of pulmonary artery (principal); I71.01 Dissection of thoracic aorta; G45.9 Transient cerebral ischemic attack, unspecified; I08.3 Combined rheumatic disorders of mitral, aortic and tricuspid valves; I50.30 Unspecified diastolic (congestive) heart failure; I44.7 Left bundle-branch block, unspecified; I11.0 Hypertensive heart disease with heart failure; I27.20 Pulmonary hypertension, unspecified; E78.5 Hyperlipidemia, unspecified; J43.2 Centrilobular emphysema; E11.9 Type 2 diabetes mellitus without complications; E03.9 Hypothyroidism, unspecified; H35.30 Unspecified macular degeneration; R91.1 Solitary pulmonary nodule
CPT/HCPCS: 82103-90; 82104-90; 83516-90; 83520-90; A9540; C1725; C1768; C1887; J0153; J0171; J0282; J0330; J0690; J1250; J1644; J1650; J1815; J1940; J2001; J2060; J2150; J2250; J2260; J2370; J2440; J2704; J2720; J2930; J3010; J3370; J7060; J7512; P9012; P9016; P9017; P9035; P9041; P9047; Q9967